=== PATIENT | female | born 1935 | race Caucasian/White ===

== ENCOUNTER 2017-02-08 12:23 | Outpatient (CLI) | payer MEDICARE, BC | END 2017-02-08 12:24 | disposition home or self-care (01) | LOC: BICMAMMO 12:23 | PROVIDERS: ATTEND Internal Medicine | DX: Z12.31 Encounter for screening mammogram for malignant neoplasm of breast (principal) | CPT/HCPCS: 77063; 77067 ==

== ENCOUNTER 2017-04-19 10:33 | Outpatient (CLI) | payer MEDICARE, BC | END 2017-04-19 10:34 | disposition home or self-care (01) | LOC: BICMAMMO 10:33 | PROVIDERS: ATTEND Internal Medicine Rheumatology | DX: M81.0 Age-related osteoporosis without current pathological fracture (principal) | CPT/HCPCS: 77080 ==

== ENCOUNTER 2017-05-11 05:37 | Day surgery (SDC) | payer MEDICARE, BC ==
[2017-05-03 11:16] VITALS: BMI 28.1
[2017-05-11] MEDS ORDERED: PROPOFOL 40 ML ONE (07:24)
[2017-05-11] MEDS ORDERED: PHENYLEPHRINE-NS 100 MCG/ML 10 ML SYRINGE ONE (07:25)
[2017-05-11] MEDS ORDERED: PROPOFOL 200 MG/20 ML VIAL ONE (13:39)
--- NOTE | 2017-05-12 07:11 | ECHO ---
PROCEDURE NOTE: Date: 05/11/17 PROCEDURE: Transesophageal echocardiogram. INDICATION FOR PROCEDURE: 81-year-old female with a history of tachybrady syndrome and intermittent atrial fibrillation, who ibarra s been on Eliquis, and was advised to undergo MERVIN and cardioversion of her atrial fibrillation. She a lso has a history of some TIAs and has been on Eliquis for at least a month. DETAILS: The patient was taken to recovery area, where she underwent a transesophageal echocardiogram. RESULTS: 1. Normal left ventricular systolic function, ejection fraction of 60-65%. 2. Mild mitral valve regurgitation. 3. Mild to moderate tricuspid valve regurgitation. 4. Mild to moderate aortic valve regurgitation. 5. No evidence of left atrial or left atrial appendage thrombus. 6. Left atrial dimension of 5.2-7.0 cm. 7. Flow in the left atrial appendage is 3.7 meters per second. 8. There were no intracardiac thrombi or masses noted. The patient tolerated the procedure well without difficulties or complications.
--- NOTE | 2017-05-12 07:16 | OP ---
PROCEDURE NOTE: Date: 05/11/17 PROCEDURE: Electrical cardioversion. PROCEDURE IN DETAIL: The patient was given short-acting propofol for anesthesia after a transesophageal echo probe reveal ed that there was no indication of left atrial or left atrial appendage thrombus. Using one attempt a t 275 joules, the patient was successfully converted back to sinus rhythm. She did have tachybrady wh en she was in the 80s and showed sinus rhythm with sinus tachycardia and accelerated junctional rhyth m, and then converted back to a sinus bradycardia with a right bundle branch block with heart rates i n the 30s and 40s. There were no other complications or difficulties encountered. If she remains sta ble and the heart rate increases, she may be discharged home. If the heart rate remains in the 30s an d 40, she may need to be admitted and undergo pacemaker insertion. We will discuss these issues with the airline stewardess.
== END 2017-05-11 12:22 | disposition home or self-care (01) ==
LOC: CCL 05:37
PROVIDERS: ATTEND Internal Medicine Cardiovascular Disease
PROC: 5A2204Z Restoration of Cardiac Rhythm, Single (ICD-10-PCS; principal; 2017-05-11)
DX: I48.0 Paroxysmal atrial fibrillation (principal); I25.10 Atherosclerotic heart disease of native coronary artery without angina pectoris; I10 Essential (primary) hypertension; I45.10 Unspecified right bundle-branch block; R47.01 Aphasia; Z79.01 Long term (current) use of anticoagulants; Z79.899 Other long term (current) drug therapy
CPT/HCPCS: 92960; 93005; 93010; 93312; J2704

== ENCOUNTER 2018-02-09 08:12 | Outpatient (CLI) | payer MEDICARE, BC | END 2018-02-09 08:13 | disposition home or self-care (01) | LOC: BICMAMMO 08:12 | PROVIDERS: ATTEND Internal Medicine | DX: Z12.31 Encounter for screening mammogram for malignant neoplasm of breast (principal) | CPT/HCPCS: 77063; 77067 ==

== ENCOUNTER 2019-02-12 09:07 | Outpatient (CLI) | payer MEDICARE, BC ==
--- NOTE | 2019-02-12 09:39 | MMO ---
Bilateral MAMMO Bilat Screen [facility]. CLINICAL HISTORY: Patient is 83 years old and is seen for screening. The patient has no family history of breast cancer. The patient has no personal history of cancer. VIEWS: The views performed were: bilateral craniocaudal with tomosynthesis and bilateral mediolateral oblique with tomosynthesis. FILMS COMPARED: The present examination has been compared to prior imaging studies performed at [facility] on 02/03/2015, 02/06/2016, 02/08/2017 and 02/09/2018. This study has been interpreted with the assistance of computer-aided detection. MAMMOGRAM FINDINGS: There are scattered fibroglandular densities. There are stable benign appearing calcifications seen in both breasts. A biopsy clip is seen in the right breast. There are no suspicious masses, suspicious calcifications, or new areas of architectural distortion. IMPRESSION: THERE IS NO MAMMOGRAPHIC EVIDENCE OF MALIGNANCY. A ROUTINE FOLLOW-UP MAMMOGRAM IN 1 YEAR IS RECOMMENDED. THE RESULTS OF THIS EXAM WERE SENT TO THE PATIENT. ACR BI-RADS Category 2 - Benign finding MAMMOGRAPHY NOTE: 1. A negative mammogram report should not delay a biopsy if a dominant of clinically suspicious mass is present. 2. Approximately 10% to 15% of breast cancers are not detected by mammography. 3. Adenosis and dense breasts may obscure an underlying neoplasm. Reported by: LEIGHTON ROBIN MD Electonically Signed: [id number]
== END 2019-02-12 09:08 | disposition home or self-care (01) ==
LOC: BICMAMMO 09:07
PROVIDERS: ATTEND Internal Medicine
DX: Z12.31 Encounter for screening mammogram for malignant neoplasm of breast (principal)
CPT/HCPCS: 77063; 77067

== ENCOUNTER 2019-04-24 07:22 | Outpatient (CLI) | payer MEDICARE, BC ==
--- NOTE | 2019-04-24 08:53 | BD ---
DEXA BONE DENSITY SCAN: DATE: 04/24/2019. COMPARISON: 12/25/2012. HISTORY: Postmenopausal female undergoing screening for osteoporosis. FINDINGS: Lumbar Spine: BMD (g/cm2) L1 1.025 T-Score: 0.3, previous 0.4 L2 1.057 T-Score: 0.3, previous 0.4 L3 1.065 T-Score: -0.2, previous 1.1 L4 1.042 T-Score: -0.2, previous 1.5 L1-L4 1.047 T-Score: 0.0, previous 0.9 Femoral Neck: 0.672 T-Score: -1.6, previous -0.9 Total Femur: 0.759 T-Score: -1.5, previous -1.3 FRAX-WHO fracture risk assessment tool reports a 10-year fracture risk of 19% for a major osteoporoti c fracture and 4.5% for a hip fracture in an untreated patient. Impression: 1. Osteopenia within the proximal femur/femoral neck. This correlates with a moderately increased r isk for fracture. 2. Normal lumbar spine bone mineral density. POS: [facility]
== END 2019-04-24 07:23 | disposition home or self-care (01) ==
LOC: BICMAMMO 07:22
PROVIDERS: ATTEND Internal Medicine Rheumatology
DX: Z13.820 Encounter for screening for osteoporosis (principal); Z78.0 Asymptomatic menopausal state; M85.859 Other specified disorders of bone density and structure, unspecified thigh
CPT/HCPCS: 77080

== ENCOUNTER 2019-05-05 04:06 | Inpatient (IN) | payer MEDICARE, BC ==
[2019-05-05] MEDS ORDERED: Morphine 4 MG/ML VIAL ONE (05:15)
[2019-05-05] MEDS ORDERED: Ondansetron PF 4 MG/2 ML Vial ONE (05:15)
[2019-05-05 05:19] LABS: #Basophils 0.1 thou/uL (0.0-0.2); #Eosinphils 0.3 thou/uL (0.0-0.7); #Lymphocytes 1.8 thou/uL (1.20-3.40); #Neutrophils 14.1 thou/uL (1.40-6.50); %Basophils 0.3 % (0.0-1.0); %Eosinophils 1.7 % (0.0-10.0); %Lymphocytes 10.3 % (21.0-51.0); %Monocytes 5.8 % (0.0-10.0); %Neutrophils 81.9 % (42.0-75.0); Hemoglobin 9.4 g/dL (12.0-16.0); Mean Corpuscular HGB CONC 33.8 g/dL (32.0-36.0); Mean Corpuscular Hemoglobin 31.6 pg (27.0-31.0); Mean Corpuscular Volume 93.5 fL (78.0-98.0); Mean Platelet Volume 7.3 fL (7.4-10.4); Platelet Count 250 thou/uL (130-400); RBC Distribution Width 13.5 % (11.5-14.5); Red Blood Cell (RBC) Count 2.99 mill/uL (4.20-5.40); White Blood Cell (WBC) Count 17.2 thou/uL (4.8-10.8)
[2019-05-05 05:25] LABS: INR-International Normal Ratio 1.2; PTT 28.9 SEC (22.9-36.1); Prothrombin Time 15.5 SEC (12.0-14.7)
[2019-05-05] MEDS ORDERED: Fentanyl 100 MCG/2 ML VIAL ONE (05:34)
[2019-05-05 05:46] LABS: Phosphorus 3.4 mg/dL (2.3-4.7)
[2019-05-05 05:49] LABS: ALT (SGPT) 12 U/L (8-55); AST (SGOT) 22 U/L (5-34); Albumin 3.3 g/dL (3.4-4.8); Alkaline Phosphatase 63 U/L (40-110); Anion Gap 12 mmol/L (10-20); BUN (Urea Nitrogen) 13 mg/dL (9.8-20.1); Bilirubin, Total 0.5 mg/dL (0.2-1.2); Calc. Creatinine Clearance 0 mL/min (70-130); Calcium 8.5 mg/dL (7.8-10.44); Carbon Dioxide 25 mmol/L (23-31); Chloride 107 mmol/L (98-107); Estimated GFR-MDRD 70; Globulin 2.2 g/dL (2.4-3.5); Glucose 127 mg/dL (83-110); Magnesium 1.9 mg/dL (1.6-2.6); Potassium 3.8 mmol/L (3.5-5.1); Protein, Total 5.5 g/dL (6.0-8.3); Sodium 140 mmol/L (136-145)
[2019-05-05] MEDS ORDERED: hydrALAZINE 20 MG/ML VIAL SLOW IVP PRN (06:01)
[2019-05-05] MEDS ORDERED: Dextrose 50% Abboject 50 ML SYRINGE SLOW IVP PRN (06:01)
[2019-05-05] MEDS ORDERED: Dextrose 5% in Water 1,000 ML IV PRN (06:01)
[2019-05-05] MEDS ORDERED: Ondansetron PF 4 MG/2 ML Vial IVP PRN (06:01)
[2019-05-05] MEDS ORDERED: Cyclobenzaprine 10 MG TAB PO PRN (06:03)
--- NOTE | 2019-05-05 08:44 | RAD ---
LEFT FEMUR TWO VIEWS: HISTORY: Fell when walking to bathroom. The patient tripped and fell. Left thigh pain. FINDINGS: There is a comminuted and angulated as well as displaced fracture involving the distal left femoral d iaphysis and metadiaphysis. Dista fracture fragment is displaced laterally by one full shaft width. O steopenia is present. No additional fracture is seen. Osteoarthritis involves the left knee. IMPRESSION: Comminuted angulated and displaced fracture, distal left femoral diaphysis and metadiaphysis. POS: OFF
--- NOTE | 2019-05-05 08:46 | RAD ---
LEFT KNEE THREE VIEWS: HISTORY: The patient fell while going to the bathroom. Left thigh pain and swelling. FINDINGS: There is a comminuted fracture involving the distal left femoral diaphysis and metadiaphysis. Distal fracture fragment is displaced laterally by one full shaft width. There is apex medial angulation of the fracture fragments. Displaced fracture fragments are present. Osteopenia is present. Osteoarthrit is involves the knee with joint space narrowing bilaterally and osteophyte formation. IMPRESSION: Comminuted, angulated and displaced fracture involving the distal left femoral diaphysis and metadiap hysis. POS: OFF
--- NOTE | 2019-05-05 08:48 | RAD ---
CHEST ONE VIEW: HISTORY: Post fall with left thigh pain, swelling and femoral fracture. COMPARISON: 10/11/2015 FINDINGS: Dual-lead left subclavian cardiac pacemaker device is now noted in place. Previously seen nasogastric tube is no longer visualized. The cardiac silhouette and pulmonary vasculature are within normal uribe its. Mild chronic lung changes are seen. There is no consolidation or pleural fluid identified. Degen erative changes are seen in the spine. Osteopenia is present. The right humeral head is high-riding, suggesting a chronic rotator cuff tear. No obvious fracture is appreciated. There are remote left sided rib fractures seen. IMPRESSION: No acute cardiopulmonary process. POS: OFF
--- NOTE | 2019-05-05 08:51 | RAD ---
PELVIS ONE VIEW: HISTORY: Post fall. Femur fracture. FINDINGS: There is bilateral hip osteoarthritis. The patient is slightly rotated but no obvious fracture is darrian reciated. Degenerative changes are seen in the lower lumbar spine. Radiopaque tubing overlies the pel vis and lower abdomen. IMPRESSION: 1. Bilateral hip osteoarthritis and degenerative changes of the lower lumbar spine. 2. No obvious fracture visualized. POS: OFF
[2019-05-05] MEDS: Acetaminophen 500 MG TAB PO SCH ×3 (09:14→18:52)
[2019-05-05] MEDS: Polyethylene Glycol 3350 17 GM Packet PO SCH (09:14)
[2019-05-05] MEDS: traMADol HCl 50 MG TAB PO PRN ×3 (09:15→21:33)
[2019-05-05] MEDS: Senokot S 8.6-50 MG TAB PO SCH ×2 (09:15→21:33)
[2019-05-05] MEDS: Famotidine/PF 20 mg/2ml Vial SLOW IVP SCH ×2 (09:16→21:32)
--- NOTE | 2019-05-05 09:18 | RAD ---
LEFT FOREARM TWO VIEWS: HISTORY: Pain and bruising of the left forearm after a fall. FINDINGS: A peripheral intravenous catheter overlies the region of the antecubital fossa. Osteopenia is present . Osteoarthritis involves the first carpometacarpal joint. No fracture or dislocation is identified. IMPRESSION: Osteopenia without acute fracture visualized. POS: OFF
--- NOTE | 2019-05-05 09:20 | RAD ---
LEFT HAND THREE VIEWS: HISTORY: Pain and bruising left hand after fall. FINDINGS: There is diffuse opacity. Osteoarthritis involves the interphalangeal joints as well as the first car pometacarpal joint. There is slight lateral subluxation of the base of the metacarpal of the thumb, r elated to the carpal bone. No fracture or dislocation is appreciated. Subcutaneous soft tissue swelli ng is seen at the dorsal aspect of the hand. IMPRESSION: 1. Subcutaneous soft tissue swelling at the dorsal aspect of the hand without acute fracture visualiz ed. 2. Osteoarthritis and osteopenia. POS: OFF
--- NOTE | 2019-05-05 09:56 | HP ---
TRAUMA SURGEON: Dr. Mcgrath. CONSULTING PHYSICIAN: Dr. Martinez. HISTORY OF PRESENT ILLNESS: The patient is an 83-year-old female who presented to the emergency department via EMS after a mechanical fall from standing. The patient reports she was walking to the bathroom using her cane at her home when her shoe got caught and she tripped, falling onto her left thigh. She denies loss of consciousness and hitting her head. She is on Eliquis for AFib. Her mentation is normal at the time of on my evaluation. There is no head trauma noted. Workup by emergency room physician demonstrated a left distal femur fracture. Dr. Martinez of Orthopedic Surgery was consulted, who recommended placing the patient in a knee immobilizer and he would evaluate her later today. He also asked for the patient to be admitted to the Trauma Service. At the time of my evaluation, the patient complained of left-sided knee and left-sided hand and wrist pain. She reported she was unable to bear weight on her left wrist, she had a large hematoma there. The patient also has bruising to the left knee. Pulses are intact. She denies numbness or tingling in her upper or lower extremities as well as loss of consciousness. During my initial assessment, the patient reported that she was feeling nauseous. Systolic blood pressure was in the 80s. Subsequently, she received a 500 cc bolus of normal saline and her blood pressure improved with systolic in the 120s. At that time. Dr. Harvey was asked to re-evaluate the patient, as there could be a concern for possible bleeding, but Dr. Harvey was not concerned and the patient did not receive any further workup for possible hemorrhage. REVIEW OF SYSTEMS: All additional 10-point review of systems negative except as indicated above. PAST MEDICAL HISTORY: AFib, hypertension, pacemaker, osteoporosis, and hypothyroidism. SURGICAL HISTORY: Colectomy, exploratory laparotomy and adhesiolysis for small bowel obstruction, hysterectomy, ocular implant. SOCIAL HISTORY: The patient lives at home with her . She uses a cane to get around. She denies tobacco, drug, and alcohol abuse. MEDICATIONS: 1. Amlodipine. 2. Clonidine. 3. Levothyroxine. 4. Losartan. 5. Eliquis. 6. Tramadol. 7. Voltaren. 8. Nexium. 9. Sotalol. 10. Alendronate. 11. Triamterene/hydrochlorothiazide. 12. Fluoxetine. 13. Aspirin. 14. Equate. 15. Vitamin B6. 16. B complex with vitamin B12. 17. Vitamin C chewable. 18. Vitamin D. 19. Vitamin E units capsule. 20. [place]-3 fish oil. 21. Magnesium. 22. Zinc. 23. Multivitamin. 24. Turmeric. 25. Biotin oral. 26. Iron 325 mg. ALLERGIES: NO KNOWN DRUG ALLERGIES. PHYSICAL EXAMINATION: VITAL SIGNS: Temperature 97.6, pulse 69, respirations 18, oxygen saturation 96% on room air, blood pressure 120/65. PRIMARY SURVEY: Airway intact. Adequate breath sounds bilaterally. 2+ pulses in bilateral radials, femorals, and DPs. GCS 15. Gross motor and sensation are intact. No lacerations noted. The patient has bruising over the left knee as well as the dorsal aspect of the left hand. No active external bleeding. SECONDARY SURVEY: HEAD: Normocephalic and atraumatic. No gross palpable skull deformities or tenderness. EYES: Pupils 3-2, equal, round, and reactive to light bilaterally. ENT: No hemotympanum. No epistaxis. No septal hematoma. Midface stable to manipulation. No blood in the oropharynx. Dentition is intact. No anterior neck injury/crepitus/tenderness. C-SPINE: No step-offs or deformities. Nontender. C-collar not in place. CHEST: Nontender. No crepitus. No abrasions or ecchymosis noted. Equal chest movement. ABDOMEN: Soft, nontender, nondistended. PELVIS: Stable to palpation. Nontender. No abrasions or ecchymosis. RECTAL: Deferred. GENITOURINARY: Deferred. EXTREMITIES: The patient has swelling and rotation of the left lower extremity. Swelling noted at the knee and bruising as well. The patient also has bruising and tenderness over the left dorsal hand and wrist. 2+ pulses in the bilateral radials, femorals, and DPs. BACK/SPINE: No step-offs, deformities, or tenderness to palpation of the thoracic or lumbar spine. No abrasions or ecchymosis noted. NEUROLOGIC: 5/5 strength in bilateral verifier operator, plantar flexion, dorsiflexion. Gross normal sensation x4 extremities. LABORATORY FINDINGS: White count 17.2, hemoglobin 9.4, hematocrit 27.9, platelets 250. Sodium 140, potassium 3.8, chloride 107, bicarb 25, BUN 13, creatinine 0.79, glucose 127, phosphorus 3.4, magnesium 1.9. DIAGNOSTIC FINDINGS: X-ray of the left knee demonstrates a left distal femur fracture. The patient also is receiving a chest x-ray, pelvic x-ray and x-ray of the left forearm and left wrist. We will follow up those reads. ASSESSMENT: 1. Status post mechanical fall, on Eliquis. 2. Left distal femur fracture. 3. History of atrial fibrillation, hypertension, osteoporosis, pacemaker, hypothyroidism, status post colectomy. 4. Left wrist, left forearm and hand pain. PLAN: The patient will be admitted to the Trauma Service. She will have a heart healthy diet. She has received 1 L bolus of IV fluids in the emergency department for hypotension, which has now resolved. It is likely due to vasovagal. We will closely monitor her hemodynamics. There is low concern for hemorrhage at this time. The patient to be evaluated by Dr. Martinez of Orthopedic Surgery for fixation of the left distal femur fracture. The patient last took her Eliquis on the evening of May 04, 2019. Subsequently, she will likely not go to the OR for at least the next 24 hours. She will receive both oral and IV pain medications. We will restart her home medications as clinically indicated once the med rec has been completed by the nursing staff. We will hold off on PT until her injury has been fixed. This patient will be discussed with Dr. Mcgrath after this dictation. Job ID: [id number]
--- NOTE | 2019-05-05 10:40 | CON ---
DATE OF CONSULTATION: 05/05/2019 HISTORY OF PRESENT ILLNESS: Ms. Locke is an 83-year-old female, who got up last night to go to the bathroom. She was using a cane. She tripped and fell. She landed on her left leg. She also injured her left hand. She had pain and inability to bear weight. She noticed deformity of her left leg as well with rotation of her foot. EMS took the patient to the emergency department. X-rays have demonstrated a left distal femur fracture with comminution and displacement. The patient of note is on Eliquis for atrial fibrillation. She also has a pacemaker placed. She took her Eliquis yesterday afternoon. REVIEW OF SYSTEMS: Positive for left leg pain and left hand pain. Otherwise, negative 10-point review of systems. PAST MEDICAL HISTORY: Atrial fibrillation, hypertension, osteoporosis, hypothyroidism, osteoarthritis of the knees. PAST SURGICAL HISTORY: Pacemaker placement, colectomy, exploratory laparotomy, hysterectomy, and ocular implant. SOCIAL HISTORY: The patient lives independently and uses a cane for mobility. She denies alcohol, tobacco, or drug use. ALLERGIES: NO KNOWN DRUG ALLERGIES. RESULTS REVIEWED: Images; x-rays of the left femur demonstrate highly comminuted and displaced distal femur fracture. There is advanced osteoarthritis of the patient's left knee as well. The patient's bone appearance is consistent with osteoporosis. PHYSICAL EXAMINATION: VITAL SIGNS: The patient is afebrile, normotensive, 98% on room air. GENERAL: She is alert, lying supine, no apparent distress. HEENT: Normocephalic and atraumatic. RESPIRATORY: Breathing comfortably. ABDOMEN: Soft, nontender, and nondistended. CARDIOVASCULAR: Pulses palpable and regular. EXTREMITIES: The left lower extremity is in a knee immobilizer. She has ecchymosis of the lower leg. She is externally rotated. She is able to flex and extend the foot and ankle. She has a palpable pulse. Sensation is intact in the foot. She has swelling and ecchymosis over the dorsal aspect of her hand. She has intact capillary refill. IMPRESSION: Left distal femur fracture with comminution and displacement. PLAN: At this point, the patient will need to go to the operating room for open reduction and internal fixation of her distal femur. We will wait until tomorrow for this intervention given that she took Eliquis yesterday evening. She should be bedrest for now. She will have medical optimization prior to surgery. We will continue knee immobilizer. Forearm and hand x-ray have been negative. We can elevate and ice the leg and hand. Job ID: [id number]
--- NOTE | 2019-05-05 10:53 | CT ---
CT HEAD WITHOUT CONTRAST: INDICATIONS: Fall with injury to head. The patient is on an anticoagulant. FINDINGS: The ventricles have normal size and position. There is no evidence of intracranial hemorrhage. No wiley ma, mass, infarct or other acute process. The paranasal sinuses and mastoids are clear. IMPRESSION: No acute finding. POS: AGW
[2019-05-05] MEDS: Morphine 2 MG/ML SYRINGE SLOW IVP PRN ×3 (12:42→21:41)
--- NOTE | 2019-05-05 13:22 | PRG ---
DATE OF SERVICE: 05/05/2019 SUBJECTIVE: This is an 83-year-old female, who tripped and fell yesterday causing a left distal femur fracture. The patient last took her Eliquis last night. The patient had no overnight events. The patient's pain is well controlled at this time. The patient voices no complaints or concerns. OBJECTIVE: VITAL SIGNS: Temperature 97.5, pulse 83, respirations 16, SpO2 of 100% on room air, blood pressure 103/61. GENERAL: Well-appearing elderly female, awake, alert, in no distress. HEENT: Head is atraumatic and normocephalic. RESPIRATORY: Equal chest rise and fall, bilateral breath sounds clear. EXTREMITIES: Distal pulses intact. Left lower extremity is on a knee immobilizer. Ecchymosis noted to the lower leg. Ecchymosis and mild swelling to left hand. Sensation intact in all extremities. NEUROLOGIC: GCS 15. No focal deficits. LABORATORY DATA: There are no labs to evaluate. DIAGNOSTIC DATA: 1. Pelvis x-ray; impression, no obvious fracture visualized, bilateral hip osteoarthritis and degenerative changes on the old lumbar spine. 2. Left forearm x-ray; impression, osteopenia without acute fracture visualized. 3. Left hand x-ray; impression, subcutaneous soft tissue swelling at the dorsal aspect of the hand without acute fracture. 4. Brain CT without contrast; impression, no acute findings, no evidence of intracranial hemorrhage. ASSESSMENT: 1. Status post mechanical fall, on Eliquis. 2. Left distal femur fracture. 3. Left hand contusion. 4. History of atrial fibrillation, hypertension, osteoporosis, pacemaker, hypothyroidism, status post colectomy, and chronic anemia. PLAN: Dr. Martinez with Orthopedic Surgery plans to take the patient to the OR tomorrow for repair of her left distal femur fracture. The patient will be on a heart healthy diet today, and then, n.p.o. after midnight except for medications. Continue left lower extremity in knee immobilizer, bedrest. Pain control. Hold Eliquis. We will monitor the patient's vital signs and restart blood pressure medications if needed. PT and OT to evaluate and treat postop. We will restart the patient's iron and vitamin C for her chronic anemia. A rehab screen has been placed. The patient will most likely need additional physical therapy. The plan was discussed with the attending who agrees. Job ID: [id number] MTDD
[2019-05-05 14:42] VITALS: BMI 31.1
--- NOTE | 2019-05-05 23:27 | PRG ---
DATE OF SERVICE: 05/05/2019 SUBJECTIVE: The patient was seen this evening during rounds. She was resting comfortably, sitting up in bed and asleep, but no signs of acute distress. Nursing reported no acute events. OBJECTIVE: VITAL SIGNS: Temperature 98, pulse 74, respirations 14, oxygen saturation 97% on room air, blood pressure 118/65. GENERAL: Well-appearing elderly female, sitting up in bed, asleep, in no signs of acute distress. PULMONARY: Equal chest rise and fall. No signs of acute respiratory distress. ASSESSMENT: 1. Status post mechanical fall, on Eliquis. 2. Left distal femur fracture. 3. History of atrial fibrillation, hypertension, pacemaker, osteoporosis, hypothyroidism, and colectomy. PLAN: The patient is n.p.o. at midnight and will go to the OR tomorrow with Dr. Martinez for fixation of her left distal femur fracture. We will continue to control her pain overnight. We did place 2 units of blood on hold for the OR tomorrow. We have restarted her home medications. We will continue to hold her antihypertensive as her blood pressure does not require those medications at this time. We will repeat blood work in the morning. Job ID: [id number]
[2019-05-06] MEDS: Acetaminophen 500 MG TAB PO SCH ×4 (01:56→18:46)
[2019-05-06 04:32] LABS: Anion Gap 12 mmol/L (10-20); BUN (Urea Nitrogen) 19 mg/dL (9.8-20.1); Calc. Creatinine Clearance 73 mL/min (70-130); Calcium 7.9 mg/dL (7.8-10.44); Carbon Dioxide 26 mmol/L (23-31); Chloride 106 mmol/L (98-107); Estimated GFR-MDRD 63; Glucose 132 mg/dL (83-110); Magnesium 2.1 mg/dL (1.6-2.6); Phosphorus 3.8 mg/dL (2.3-4.7); Potassium 3.9 mmol/L (3.5-5.1); Sodium 140 mmol/L (136-145)
[2019-05-06] MEDS: Levothyroxine Sodium 25 MCG TAB PO SCH (04:57)
[2019-05-06] MEDS: Levothyroxine Sodium 112 MCG TAB PO SCH (04:57)
[2019-05-06] MEDS: traMADol HCl 50 MG TAB PO PRN (04:57)
[2019-05-06 05:13] LABS: Band 5 % (5-11); Eosinophils 1 % (0-10); Hemoglobin 6.2 g/dL (12.0-16.0); Lymphocytes 18 % (21-51); MDiff Complete? YES; Mean Corpuscular HGB CONC 34.3 g/dL (32.0-36.0); Mean Corpuscular Hemoglobin 32.2 pg (27.0-31.0); Mean Corpuscular Volume 93.8 fL (78.0-98.0); Mean Platelet Volume 7.7 fL (7.4-10.4); Monocytes 14 % (0-10); Neutrophil 62 % (42-75); Platelet Count 171 thou/uL (130-400); RBC Distribution Width 13.4 % (11.5-14.5); Red Blood Cell (RBC) Count 1.91 mill/uL (4.20-5.40); White Blood Cell (WBC) Count 8.1 thou/uL (4.8-10.8)
--- NOTE | 2019-05-06 05:55 | PDOC.EVN ---
Event Note - Event Note Event Note: Patient to receive 2U PRBC this AM for HGB of 6.2. She is going to the OR today with ortho for fixation of her L distal femur fx as well. She takes eliquis at home fore Afib which has been held since her admission. Will plan to repeat a CBC post op. Jenny Landa PA-C Trauma Surgery
--- NOTE | 2019-05-06 07:33 | PDOC.EVN ---
Event Note - Event Note Event Note: Pt seen and agree with PA note. To OR for femur today.
[2019-05-06] MEDS ORDERED: Fentanyl 100 MCG/2 ML VIAL ONE ×2 (07:54→08:47)
[2019-05-06] MEDS ORDERED: Lidocaine 1% PF 5 ML VIAL ONE ×2 (07:54→10:25)
[2019-05-06] MEDS: Ascorbic Acid 500 mg Chewable Tablet PO SCH (08:00)
[2019-05-06] MEDS ORDERED: CEFAZOLIN 2 GM in Premix Bag 1 BAG IVPB SCH (08:00)
[2019-05-06] MEDS: Ferrous Sulfate 325 MG TAB PO SCH (08:01)
[2019-05-06] MEDS: Polyethylene Glycol 3350 17 GM Packet PO SCH (08:01)
[2019-05-06] MEDS: Senokot S 8.6-50 MG TAB PO SCH ×2 (08:01→21:15)
[2019-05-06] MEDS: Famotidine/PF 20 mg/2ml Vial SLOW IVP SCH (08:01)
[2019-05-06] MEDS: Magnesium Oxide 400 MG TAB PO SCH (08:01)
[2019-05-06] MEDS ORDERED: Ketamine 50 MG/ML (10ML VIAL) ONE (08:41)
[2019-05-06] MEDS ORDERED: SUGAMMADEX SODIUM 200 MG/2 ML VIAL ONE (09:33)
[2019-05-06] MEDS ORDERED: Bupivacaine/Epinephrine 0.25% 30 ML VIAL ONE (09:46)
[2019-05-06] MEDS ORDERED: Rocuronium Bromide 10 MG/ML (10ML VIAL) ONE (10:25)
[2019-05-06] MEDS ORDERED: PROPOFOL 200 MG/20 ML VIAL ONE (10:25)
[2019-05-06] MEDS ORDERED: Ondansetron PF 4 MG/2 ML Vial ONE (10:25)
[2019-05-06] MEDS ORDERED: HYDROmorphone 2 MG/ML VIAL SLOW IVP PRN (10:42)
[2019-05-06] MEDS ORDERED: Promethazine HCl 25 MG/ML VIAL SLOW IVP PRN (10:42)
[2019-05-06] MEDS ORDERED: Morphine Sulfate 2 MG/ML SYRINGE SLOW IVP PRN (10:42)
[2019-05-06] MEDS ORDERED: PACU-Morphine 4MG/ML VIAL SLOW IVP PRN (10:42)
[2019-05-06] MEDS ORDERED: Ondansetron HCl/PF 4 MG/2 ML Vial IVP PRN (10:42)
[2019-05-06] MEDS ORDERED: Promethazine HCl 25 MG/ML VIAL IM PRN (10:42)
--- NOTE | 2019-05-06 12:46 | RAD ---
LEFT FEMUR: INDICATIONS: Intraoperative imaging during open reduction and internal fixation. TECHNIQUE: A total of seven fluoroscopic views are presented from the OR. FINDINGS: Films demonstrate a plate and screws transfixing the mid and distal femur. POS: AGW
[2019-05-06] MEDS: CEFAZOLIN 2 GM in Premix Bag 1 BAG IVPB SCH (17:13)
--- NOTE | 2019-05-06 18:19 | PRG ---
DATE OF SERVICE: 05/06/2019 SUBJECTIVE: The patient remains on the surgical floor. The patient is postop day 0 status post repair of her left distal femur fracture. The patient is currently awake, alert, talking to her family on the phone. The patient is in no distress and denies any pain. The patient is currently eating and tolerating her diet well. The patient voices no complaints or concerns. The patient did have a low hemoglobin this morning and was given 1 unit of packed red blood cells before surgery and 1 unit packed red blood cells in the OR. The patient denies any weakness or dizziness. OBJECTIVE: VITAL SIGNS: Temperature 98.3, respirations 18, SpO2 to 95% on room air, pulse 78, blood pressure 120/65. GENERAL: Well-appearing elderly female, awake, alert, in no distress. RESPIRATORY: Equal chest rise and fall. Respirations are even and nonlabored. EXTREMITIES: Moves all extremities. No significant swelling. Left lower extremity in a knee immobilizer. NEUROLOGIC: No focal deficit. GCS 15. LABORATORY DATA: WBC 8.1, RBC 1.91, hemoglobin 6.2, hematocrit 17.9, platelets 171. Sodium 140, potassium 3.9, chloride 106, carbon dioxide 26, BUN 19, creatinine 0.86, estimated GFR 63, glucose 132, calcium 7.9, phosphorus 3.8, magnesium 2.1. DIAGNOSTIC STUDIES: There are no new diagnostics to review. ASSESSMENT: 1. Status post mechanical fall, on Eliquis. 2. Left distal femur fracture. 3. Left hand contusion. 4. History of atrial fibrillation, hypertension, osteoporosis, pacemaker, hypothyroidism, status post colectomy, and chronic anemia. PLAN: Heart healthy diet. We will change to ground mechanical soft as the patient does not have her teeth with her. We will discontinue IV fluids since the patient is tolerating diet. Pain control. Have the patient work with Physical and Occupational Therapy. We will repeat the patient's hemoglobin later this evening and again in the morning. The plan was discussed with the attending who agrees. Job ID: [id number] MTDD
[2019-05-06 20:01] LABS: #Basophils 0.1 thou/uL (0.0-0.2); #Lymphocytes 1.3 thou/uL (1.20-3.40); #Monocytes 1.7 thou/uL (0.11-0.59); #Neutrophils 9.6 thou/uL (1.40-6.50); %Basophils 0.4 % (0.0-1.0); %Eosinophils 0.3 % (0.0-10.0); %Lymphocytes 10.3 % (21.0-51.0); %Monocytes 13.1 % (0.0-10.0); %Neutrophils 75.9 % (42.0-75.0); Hemoglobin 6.6 g/dL (12.0-16.0); Mean Corpuscular HGB CONC 33.4 g/dL (32.0-36.0); Mean Corpuscular Hemoglobin 30.2 pg (27.0-31.0); Mean Corpuscular Volume 90.2 fL (78.0-98.0); Mean Platelet Volume 8.2 fL (7.4-10.4); Platelet Count 139 thou/uL (130-400); RBC Distribution Width 15.7 % (11.5-14.5); Red Blood Cell (RBC) Count 2.18 mill/uL (4.20-5.40); White Blood Cell (WBC) Count 12.6 thou/uL (4.8-10.8)
--- NOTE | 2019-05-06 20:13 | PDOC.EVN ---
Event Note - Event Note Event Note: Patient to receive 1U PRBC tonight for a post op HGB of 6.6. She received 2U PRBC already today before and during her OR case for a HGB of 6.2. Patient is now POD 0 and takes Eliquis at home. Eliquis has been held since admission. We will follow up with another CBC tomorrow morning, 05/07/19. Jenny Landa PA-C Trauma Surgery
[2019-05-07] MEDS: Acetaminophen 500 MG TAB PO SCH ×5 (00:01→17:41)
[2019-05-07] MEDS: CEFAZOLIN 2 GM in Premix Bag 1 BAG IVPB SCH (00:01)
--- NOTE | 2019-05-07 03:42 | PRG ---
DATE OF SERVICE: 05/06/2019 SUBJECTIVE: The patient was seen this evening during rounds. She was lying in bed comfortably and asleep with no signs of acute distress. Nursing reported no acute events. OBJECTIVE: VITAL SIGNS: Temperature 97.8, pulse 85, respirations 16, oxygen saturation 98% on room air, and blood pressure 154/70. GENERAL: Well-appearing elderly female, lying in bed with no signs of acute distress. PULMONARY: Equal chest rise and fall. No signs of acute respiratory distress. LABORATORY FINDINGS: White count 12.6, hemoglobin 6.6, hematocrit 19.6, and platelets 139. ASSESSMENT: 1. Status post mechanical fall, on Eliquis. 2. Left distal femur fracture, status post repair. 3. History of atrial fibrillation, hypertension, pacemaker, osteoporosis, hypothyroidism, and colectomy. 4. Acute blood loss anemia. PLAN: Continue current diet and pain regimen. Continue physical and occupational therapy. The patient to receive 1 unit of packed red blood cells for a hemoglobin of 6.6 tonight, and we will follow up with a CBC in the morning. We will restart some of the patient's home antihypertensive medications, and we will reassess the need to start additional ones. She will likely need placement at acute rehab facility. Job ID: [id number]
[2019-05-07 05:42] LABS: #Basophils 0.1 thou/uL (0.0-0.2); #Eosinphils 0.2 thou/uL (0.0-0.7); #Lymphocytes 1.8 thou/uL (1.20-3.40); #Monocytes 1.9 thou/uL (0.11-0.59); #Neutrophils 10.2 thou/uL (1.40-6.50); %Basophils 0.4 % (0.0-1.0); %Eosinophils 1.3 % (0.0-10.0); %Lymphocytes 12.5 % (21.0-51.0); %Monocytes 13.3 % (0.0-10.0); %Neutrophils 72.5 % (42.0-75.0); Hemoglobin 7.1 g/dL (12.0-16.0); Mean Corpuscular HGB CONC 31.9 g/dL (32.0-36.0); Mean Platelet Volume 8.8 fL (7.4-10.4); Platelet Count 125 thou/uL (130-400); RBC Distribution Width 15.4 % (11.5-14.5); Red Blood Cell (RBC) Count 2.43 mill/uL (4.20-5.40); White Blood Cell (WBC) Count 14.1 thou/uL (4.8-10.8)
[2019-05-07] MEDS: Levothyroxine Sodium 25 MCG TAB PO SCH (06:06)
[2019-05-07] MEDS: Levothyroxine Sodium 112 MCG TAB PO SCH (06:06)
[2019-05-07 06:09] LABS: Anion Gap 15 mmol/L (10-20); BUN (Urea Nitrogen) 22 mg/dL (9.8-20.1); Calc. Creatinine Clearance 71 mL/min (70-130); Calcium 7.7 mg/dL (7.8-10.44); Carbon Dioxide 21 mmol/L (23-31); Chloride 108 mmol/L (98-107); Estimated GFR-MDRD 62; Glucose 116 mg/dL (83-110); Magnesium 2.1 mg/dL (1.6-2.6); Phosphorus 2.2 mg/dL (2.3-4.7); Potassium 3.8 mmol/L (3.5-5.1); Sodium 140 mmol/L (136-145)
--- NOTE | 2019-05-07 08:03 | OP ---
DATE OF PROCEDURE: 05/06/2019 PROCEDURE PERFORMED: Open reduction and internal fixation of left distal femur fracture. PREOPERATIVE DIAGNOSIS: Comminuted and displaced left distal femur fracture. POSTOPERATIVE DIAGNOSIS: Comminuted and displaced left distal femur fracture. COMPLICATIONS: None. ESTIMATED BLOOD LOSS: 200 mL. MACHINERY ENGINEER: Dillan Sunshine PA-C. IMPLANTS: Synthes 16-hole distal femoral plate with multiple locking and nonlocking screws. INDICATIONS: Ms. Locke is an 83-year-old female, who has fallen and fractured her distal femur. She has been indicated for open reduction and internal fixation to restore anatomic alignment and promote healing. Risks have been reviewed with her. Prolonged recovery process had been reviewed with her. She wants to proceed with the operation. DESCRIPTION OF PROCEDURE: Ms. Locke was identified in the preoperative holding area. Her correct extremity was marked. She was carried to the operating room. She was positioned supine. General anesthesia was induced. A multidisciplinary time-out was performed. The left lower extremity was prepped and draped in sterile fashion. We began the procedure with making a small incision over the lateral distal femur. We dissected down through the subcutaneous tissues to the fascia, which was opened. We dissected down to the lateral aspect of the distal femur. At this point, we pulled traction on the leg and obtained an appropriate reduction. We used intraoperative x-ray to evaluate this. Next, we slid a 16-hole Synthes distal femoral plate from distal to proximal along the cortical bone. We placed a K-wire through the plate proximally. We then placed a K-wire distally, locking our construct. Next, we placed a nonlocking screw in the shaft of the femur, reducing the plate to the bone. At this point, we placed multiple locking screws distally followed by multiple locking screws proximally. We took x-ray images confirming hardware placement and position. There were no complications. After final x-ray images, we thoroughly irrigated with copious lavage. We then closed our layers appropriately. The fascia was closed distally followed by layered closure. [place] were used for the skin. A sterile dressing was applied. The patient was taken to the recovery room in good condition. Job ID: [id number]
[2019-05-07] MEDS: Polyethylene Glycol 3350 17 GM Packet PO SCH (08:09)
[2019-05-07] MEDS: Senokot S 8.6-50 MG TAB PO SCH ×2 (08:09→20:48)
[2019-05-07] MEDS: Magnesium Oxide 400 MG TAB PO SCH (08:09)
[2019-05-07] MEDS: Ascorbic Acid 500 mg Chewable Tablet PO SCH ×2 (08:10→17:01)
[2019-05-07] MEDS: cloNIDine 0.2 MG TAB PO SCH ×4 (08:10→20:45)
[2019-05-07] MEDS: Ferrous Sulfate 325 MG TAB PO SCH ×2 (08:10→17:01)
[2019-05-07] MEDS ORDERED: Losartan 25 MG TAB PO SCH (09:00)
[2019-05-07] MEDS ORDERED: Amlodipine 10 MG TAB PO SCH ×2 (09:00→21:00)
[2019-05-07] MEDS: traMADol HCl 50 MG TAB PO PRN (15:25)
--- NOTE | 2019-05-07 19:07 | PRG ---
DATE OF SERVICE: 05/07/2019 This is Emilee Verdin NP dictating a report for Reji Gurrola DO. SUBJECTIVE: The patient remains on the surgical floor. The patient is postop day #1, status repair of her left distal femur fracture. The patient is currently awake, alert, and in no distress. The patient denies any pain at this time. The patient continues to tolerate a heart-healthy diet. The patient continues to have adequate urinary output. The patient had no overnight events. The patient was restarted on some of her home blood pressure medications. The patient did receive 1 unit of packed red blood cells overnight as she had a repeat hemoglobin of 6.6. OBJECTIVE: VITAL SIGNS: Blood pressure 156/76, temperature 99.1, pulse 99, respirations 18, and SpO2 of 96% on room air. GENERAL: Elderly female, well-appearing, awake, alert, and in no distress. RESPIRATORY: Equal chest rise and fall. Respirations are even and nonlabored. EXTREMITIES: Moves all extremities. No focal deficits. Larry wrap in place at this time. The patient is pending a different brace for her left lower extremity. NEUROLOGIC: No focal deficit. GCS 15. LABORATORY DATA: WBC 14.1, RBC 2.43, hemoglobin 7.1, hematocrit 22.1, and platelets 125. Sodium 140, potassium 3.8, chloride 108, carbon dioxide 21, creatinine 0.88, estimated GFR 62, glucose 116, calcium 7.7, phosphorus 2.2, and magnesium 2.1. DIAGNOSTIC STUDIES: There are no new diagnostics to review today. ASSESSMENT: 1. Status post mechanical fall on Eliquis. 2. Left distal femur fracture, status post repair. 3. Left hand contusion. 4. Blood loss anemia, stable. 5. History of atrial fibrillation, hypertension, osteoporosis, pacemaker, hypothyroidism, status post colectomy, and chronic anemia. PLAN: Continue diet and supportive care. Continue to have the patient work with physical therapy. We will monitor the patient's hemoglobin and hematocrit and repeat labs in the morning. If the patient's hemoglobin and hematocrit are stable, we will restart patient's home Eliquis. Continue pain regimen. The patient's home medications were updated by the day nurse and adjustments were made as the patient no longer takes metoprolol and digoxin. We will increase the patient's home dose of iron and vitamin C to b.i.d. The patient is pending placement to inpatient rehab for continued physical therapy. The patient was examined by Dr. Gurrola during morning rounds. Job ID: [id number] [facility]
[2019-05-07] MEDS: Amlodipine 10 MG TAB PO SCH (20:47)
[2019-05-07] MEDS ORDERED: Digoxin 0.125 MG TAB PO SCH (21:00)
--- NOTE | 2019-05-08 00:40 | PRG ---
DATE OF SERVICE: 05/07/2019 SUBJECTIVE: The patient was seen this evening during rounds. She was lying in bed, resting comfortably with no signs of acute distress. Nursing reported no acute events. OBJECTIVE: VITAL SIGNS: Temperature 98.3, pulse 109, respirations 16, oxygen saturation 90% on room air, blood pressure 113/71. GENERAL: Well-appearing elderly female, lying in bed, asleep with no signs of acute distress. PULMONARY: Equal chest rise and fall. No signs of acute respiratory distress. ASSESSMENT: 1. Status post mechanical fall, on Eliquis. 2. Left distal femur fracture, status post repair. 3. History of atrial fibrillation, hypertension, pacemaker, osteoporosis, hypothyroidism, and colectomy. PLAN: Continue current diet and pain regimen. Continue physical and occupational therapy. Restart the patient's home beta mita. The patient is pending placement at an acute rehab facility. She is ready for discharge at this time the patient. Job ID: [id number]
[2019-05-08] MEDS: Acetaminophen 500 MG TAB PO SCH ×4 (03:11→18:09)
[2019-05-08 05:09] LABS: #Eosinphils 0.2 thou/uL (0.0-0.7); #Lymphocytes 1.3 thou/uL (1.20-3.40); #Monocytes 0.9 thou/uL (0.11-0.59); #Neutrophils 7.9 thou/uL (1.40-6.50); %Basophils 0.3 % (0.0-1.0); %Eosinophils 2.1 % (0.0-10.0); %Lymphocytes 12.8 % (21.0-51.0); %Neutrophils 75.9 % (42.0-75.0); Hemoglobin 6.9 g/dL (12.0-16.0); Mean Corpuscular Hemoglobin 31.4 pg (27.0-31.0); Mean Corpuscular Volume 92.3 fL (78.0-98.0); Mean Platelet Volume 8.1 fL (7.4-10.4); Platelet Count 145 thou/uL (130-400); RBC Distribution Width 15.4 % (11.5-14.5); Red Blood Cell (RBC) Count 2.19 mill/uL (4.20-5.40); White Blood Cell (WBC) Count 10.5 thou/uL (4.8-10.8)
[2019-05-08] MEDS: Levothyroxine Sodium 112 MCG TAB PO SCH (05:19)
[2019-05-08] MEDS: Levothyroxine Sodium 25 MCG TAB PO SCH (05:20)
[2019-05-08] MEDS: traMADol HCl 50 MG TAB PO PRN (05:21)
[2019-05-08 06:40] LABS: Anion Gap 10 mmol/L (10-20); BUN (Urea Nitrogen) 17 mg/dL (9.8-20.1); Calc. Creatinine Clearance 101 mL/min (70-130); Calcium 7.7 mg/dL (7.8-10.44); Carbon Dioxide 25 mmol/L (23-31); Chloride 108 mmol/L (98-107); Estimated GFR-MDRD Greater than 90; Glucose 102 mg/dL (83-110); Magnesium 1.9 mg/dL (1.6-2.6); Phosphorus 1.6 mg/dL (2.3-4.7); Potassium 3.9 mmol/L (3.5-5.1); Sodium 139 mmol/L (136-145)
[2019-05-08] MEDS ORDERED: Potassium Phosphate 30 MMOL, Magnesium Sulfate 2 GM in Sodium Chloride 0.9% 250 ML 250 ML IVPB SCH (08:30)
[2019-05-08] MEDS: Polyethylene Glycol 3350 17 GM Packet PO SCH (08:34)
[2019-05-08] MEDS: Losartan 25 MG TAB PO SCH (08:35)
[2019-05-08] MEDS: Sotalol HCl 80 MG TAB PO SCH (08:35)
[2019-05-08] MEDS: Senokot S 8.6-50 MG TAB PO SCH ×2 (08:35→20:30)
[2019-05-08] MEDS: Ascorbic Acid 500 mg Chewable Tablet PO SCH ×2 (08:36→18:02)
[2019-05-08] MEDS: Magnesium Oxide 400 MG TAB PO SCH (08:37)
[2019-05-08] MEDS: Ferrous Sulfate 325 MG TAB PO SCH ×3 (08:37→18:03)
[2019-05-08] MEDS: cloNIDine 0.2 MG TAB PO SCH ×3 (08:40→20:29)
[2019-05-08] MEDS ORDERED: Non-Formulary Item 1 EACH (Losartan Potassium [Losartan Potassium] 100 MG) PO SCH (09:00)
--- NOTE | 2019-05-08 17:48 | PRG ---
DATE OF SERVICE: 05/08/2019 This is Billy Lange PA-C dictating a report for Dr. Gurrola. SUBJECTIVE: The patient remains on the surgical floor. She is status post ground level fall where she sustained a left distal femur fracture. She is postop day 2 from open reduction and internal fixation of left distal femur fracture. She has begun working with Physical and Occupational Therapy. This morning, she was noted to have hemoglobin of 6.9. Otherwise, overnight she had no issues. She is tolerating her diet. Her pain is controlled. PHYSICAL EXAMINATION: VITAL SIGNS: Temperature is 98.9, heart rate 91, blood pressure 119/70, respirations 20, oxygen saturation 95% on room air. GENERAL: The patient is resting comfortably in bed. She is awake, alert, conversant, and appropriate. RESPIRATIONS: Even and unlabored. EXTREMITIES: Neurovascularly intact x4. Postop dressing is clean, dry, and intact. LABORATORY FINDINGS: White blood cell count 10.5, hemoglobin 6.9, hematocrit 20.2, platelets 145. Sodium 139, potassium 3.9, chloride 108, CO2 of 25, BUN 17, creatinine 0.62, magnesium 1.9, phosphorus 1.6. There are no radiographs to review this morning. ASSESSMENT AND PLAN: 1. Status post ground level fall, on Eliquis. 2. Status post open reduction and internal fixation of left distal femur fracture postop day 2. 3. Acute blood-loss anemia, transfused 1 unit of packed red blood cells today. 4. Left hand contusion, stable. 5. History of atrial fibrillation, hypertension, osteoporosis, pacemaker, hypothyroidism, status post colectomy, and chronic anemia. Plan will be to continue supportive care. Await placement which has been approved for rehab until tomorrow morning. We will replace her potassium and phosphorus and transfuse 1 unit of packed red blood cells. The patient was evaluated and examined with Dr. Gurrola this morning during rounds. Job ID: [id number]
[2019-05-08] MEDS: Amlodipine 10 MG TAB PO SCH (20:30)
[2019-05-09] MEDS: Acetaminophen 500 MG TAB PO SCH ×3 (00:41→11:56)
[2019-05-09] MEDS: Levothyroxine Sodium 112 MCG TAB PO SCH (05:42)
[2019-05-09] MEDS: Levothyroxine Sodium 25 MCG TAB PO SCH (05:42)
[2019-05-09 06:39] LABS: Anion Gap 12 mmol/L (10-20); BUN (Urea Nitrogen) 16 mg/dL (9.8-20.1); Calc. Creatinine Clearance 110 mL/min (70-130); Calcium 8.3 mg/dL (7.8-10.44); Carbon Dioxide 24 mmol/L (23-31); Chloride 107 mmol/L (98-107); Estimated GFR-MDRD Greater than 90; Glucose 102 mg/dL (83-110); Magnesium 2.2 mg/dL (1.6-2.6); Phosphorus 2.3 mg/dL (2.3-4.7); Potassium 4.3 mmol/L (3.5-5.1); Sodium 139 mmol/L (136-145)
--- NOTE | 2019-05-09 06:52 | PRG ---
DATE OF SERVICE: 05/08/2019 SUBJECTIVE: Ms. Locke is an 83-year-old female, status post ground level fall. She sustained left distal femur fracture. She underwent ORIF of left distal femur fracture, postop day #2. Acute blood loss anemia, already had 1 unit of blood transfusion today. The patient was seen on evening rounds today. The patient was sleep with no signs of respiratory distress. Vital signs have been stable. Nurse reports the patient is uneventful, and pain is well controlled. OBJECTIVE: GENERAL: The patient is sound asleep with no signs of respiratory distress. VITAL SIGNS: Currently, temperature 98.6, heart rate is 112, respiratory rate 18, O2 saturation 95% on room air, and blood pressure 136/84. LUNGS: Clear bilaterally. HEART: Regular rate and rhythm. EXTREMITIES: Warm to touch, and pulses 2 positive bilaterally. ASSESSMENT: 1. Status post ground level fall. 2. Left distal femur fracture, status post open reduction and internal fixation of left distal femur fracture, postop day #2. 3. Acute blood loss anemia, already transfused 1 unit of blood today. 4. History of atrial fibrillation. 5. Hypertension. 6. Pacemaker. 7. Hypothyroidism. 8. Post colectomy. 9. Chronic anemia. PLAN: Continue supportive care. Continue pain control. We will recheck CBC tomorrow. Anticipate placement in rehabilitation facility tomorrow. Job ID: [id number]
[2019-05-09 07:32] LABS: #Eosinphils 0.2 thou/uL (0.0-0.7); #Lymphocytes 1.3 thou/uL (1.20-3.40); #Monocytes 0.9 thou/uL (0.11-0.59); #Neutrophils 9.6 thou/uL (1.40-6.50); %Basophils 0.3 % (0.0-1.0); %Eosinophils 1.4 % (0.0-10.0); %Monocytes 7.7 % (0.0-10.0); %Neutrophils 79.6 % (42.0-75.0); Hemoglobin 9.2 g/dL (12.0-16.0); Mean Corpuscular HGB CONC 34.5 g/dL (32.0-36.0); Mean Corpuscular Volume 92.8 fL (78.0-98.0); Mean Platelet Volume 8.3 fL (7.4-10.4); Platelet Count 225 thou/uL (130-400); RBC Distribution Width 15.3 % (11.5-14.5); Red Blood Cell (RBC) Count 2.86 mill/uL (4.20-5.40); White Blood Cell (WBC) Count 12.1 thou/uL (4.8-10.8)
[2019-05-09] MEDS: Sotalol HCl 80 MG TAB PO SCH (08:33)
[2019-05-09] MEDS: cloNIDine 0.2 MG TAB PO SCH (08:33)
[2019-05-09] MEDS: Losartan 25 MG TAB PO SCH (08:33)
[2019-05-09] MEDS: Magnesium Oxide 400 MG TAB PO SCH (08:33)
[2019-05-09] MEDS: Ferrous Sulfate 325 MG TAB PO SCH (08:33)
[2019-05-09] MEDS: Ascorbic Acid 500 mg Chewable Tablet PO SCH (08:33)
[2019-05-09] MEDS: Senokot S 8.6-50 MG TAB PO SCH (08:37)
[2019-05-09] MEDS: Polyethylene Glycol 3350 17 GM Packet PO SCH (08:37)
[2019-05-09 11:33] VITALS: BP 114/68; TEMP 98.6
--- NOTE | 2019-05-10 10:56 | DIS ---
DATE OF ADMISSION: 05/05/2019 DATE OF DISCHARGE: 05/09/2019 ADMISSION DIAGNOSES: 1. Status post mechanical fall, on Eliquis. 2. Left distal femur fracture. 3. History of atrial fibrillation, hypertension, osteoporosis, pacemaker, hypothyroidism, and colectomy. 4. Left wrist, left forearm, and hand contusion. 5. Acute blood loss anemia. CONSULTATIONS: Orthopedics, Dr. Martinez. PROCEDURES: Open reduction and internal fixation of left distal femur fracture. HOSPITAL COURSE: The patient is an 83-year-old woman who was ambulating with her cane when she caught it and tripped falling on her left side. She was brought to the emergency department by ground EMS, where she underwent evaluation and examination and was noted to have the above injuries. Her head CT was negative and her mental status was stable throughout her visit. The patient was noticed to have acute blood loss anemia requiring transfusions on 2 separate occasions, but at the time of discharge, she was stable. She was able to be discharged to inpatient rehab. At the time of discharge, the patient was tolerating a diet. She was progressing with physical and occupational therapy. Her pain was controlled and her bowel function had returned. She will follow up with Dr. Martinez in 2-3 weeks, sooner as needed. She may follow up with [facility] as needed. She will have repeat CBC while in rehab to check her anemia. Job ID: [id number]
== END 2019-05-09 12:15 | DRG 481 ==
LOC: ERS 04:06 → SURG A 06:01
PROVIDERS: ADMIT Surgery; ATTEND Surgery
PROC: 0QSC04Z Reposition Left Lower Femur with Internal Fixation Device, Open Approach (ICD-10-PCS; principal; 2019-05-06)
PROC: 30233N1 Transfusion of Nonautologous Red Blood Cells into Peripheral Vein, Percutaneous Approach (ICD-10-PCS; 2019-05-06)
DX: S72.492A Other fracture of lower end of left femur, initial encounter for closed fracture (principal); D62 Acute posthemorrhagic anemia; I48.91 Unspecified atrial fibrillation; I10 Essential (primary) hypertension; E03.9 Hypothyroidism, unspecified; M81.0 Age-related osteoporosis without current pathological fracture; M25.532 Pain in left wrist; M79.632 Pain in left forearm; M17.0 Bilateral primary osteoarthritis of knee; S60.222A Contusion of left hand, initial encounter; W01.0XXA Fall on same level from slipping, tripping and stumbling without subsequent striking against object, initial encounter; Y92.002 Bathroom of unspecified non-institutional (private) residence as the place of occurrence of the external cause; Z95.0 Presence of cardiac pacemaker; Z90.49 Acquired absence of other specified parts of digestive tract; Z79.899 Other long term (current) drug therapy; Z79.01 Long term (current) use of anticoagulants; Z79.82 Long term (current) use of aspirin
CPT/HCPCS: 36415; 36430; 70450; 71045; 72170; 76000; 80048; 80053; 83735; 84100; 85007; 85025; 85027; 85610; 85730; 86850; 86870; 86900; 86901; 86922; 93005; 96361; 96374; 96375; C1713; C1769; G0390; J0690; J2001; J2270; J2405; J2704; J3010; J3475; J7050; L1832; P9016; S0028

== ENCOUNTER 2020-02-27 19:20 | Inpatient (IN) | payer MEDICARE, BC ==
[2020-02-27] MEDS ORDERED: Diltiazem HCl 125 MG, Admixture Fee 1 EACH in Sodium Chloride 0.9% 100 ML IVPB SCH (20:00)
[2020-02-27 21:06] LABS: Troponin I 0.048 ng/mL (< 0.028)
[2020-02-27] MEDS ORDERED: Ondansetron ODT 4 MG TAB PO PRN (21:27)
[2020-02-27] MEDS ORDERED: Sodium Chloride 0.9% 1,000 ML IV SCH (21:30)
--- NOTE | 2020-02-27 21:31 | PDOC.HHP ---
Hospitalist HPI - History of Present Illness Nausea and vomiting, A. fib with RVR History of Present Illness: This is a pleasant 84-year-old female patient with a history of hypothyroidism, hypertension, A. fib and pacemaker in place, osteoporosis, colonic resection previously complicated with adhesions. Who presents as a transfer from [facility] on account of A. fib with RVR and moderate left-sided pleural effusion. Patient had a fall about 8 months ago with left distal femoral fracturehas had a home care nurse for a while. She had open reduction and internal fixation on that admission Patient has been having nausea and vomiting intermittently for the past month and some associated weight loss. She has also been having associated shortness of breath for the past couple of weeks. Her home health nurse suggested she follow-up for further management. At [facility] she was noted to be in A. fib with RVR and noted a left-sided pleural effusion. Also concerns for pneumonia. She was started on doxycycline and ceftriaxone with diltiazem drip and sent here for higher level care. Labs showed a leukocytosis of 13.4, no bands, hemoglobin 11.9 and platelets 468. Chemistry showed bicarb of 19, creatinine 1.53 from a baseline of 0.86. Troponin was 0.049. She received aspirin 3 2 5 mg prior to transfer. On arrival here her blood pressure was 86/52, respiratory rate 22, pulse 112, temperature 97.8 and saturation 99 on 3 L. She received 1 L of normal saline and continued on diltiazem. Hospitalist team was consulted to admit Hospitalist ROS - Review of Systems Constitutional: reports: weakness, malaise. denies: fever, chills, sweats Respiratory: reports: shortness of breath, SOB with excertion. denies: cough, hemoptysis Cardiovascular: denies: chest pain, palpitations, orthopnea, paroxysmal noc. dyspnea Gastrointestinal: reports: nausea, vomiting, constipation. denies: abdominal pain, diarrhea Genitourinary: denies: dysuria, frequency, incontinence, hematuria Neurological: denies: weakness, numbness, incoordination, change in speech All other systems reviewed; all pertinent +/- noted in HPI/Subj - Medication Medications: Medications: Currently refer to ambulatory list. Allergies.: No known drug allergies Hospitalist History - Past Medical History Other Medical History: Hypothyroidism, hypertension, A. fib on Eliquis, - Past Surgical History Other Surgical History: ORIF, ocular transplant, hysterectomy, colon resection, - Family History Family History: reports: no pertinent history - Social History Smoking Status: Never smoker Alcohol: reports: None Living Situation: With Family Activity level: uses cane/walker - Exam General Appearance: awake alert General - other findings: Looks ill. Eye: PERRL, anicteric sclera ENT: normocephalic atraumatic Heart: no murmur, no gallops, no rubs Heart - other findings: Tachycardic, irregularly irregular heart rhythm Respiratory - other findings: Reduced air entry left base Gastrointestinal: soft, non-tender, non-distended Extremities: no cyanosis, no clubbing, 1+ LE edema Neurological: cranial nerve grossly intact, no weakness, no focal deficits Psychiatric: normal affect, normal behavior, A&O x 3 Hospitalist Results - Labs Result Diagrams: 02/27/20 21:48 02/28/20 03:26 Lab results: Troponin I 0.048 ng/mL (< 0.028) H 02/27/20 20:32 Hospitalist H&P A/P - Plan Plan: This is an 84-year-old female patient with a history of hypertension, A. fib on Anay also has pacemaker, colon resection who presents with progressive weakness, nausea vomiting and shortness of breath. She was transferred from [facility] on account of A. fib with RVR with associated left-sided pleural effusion Sepsis She has leukocytosis and tachypnea or tachycardia if RVR with ANDRE. Source likely from pneumonia She is receiving cefepime and doxycycline Holding fluid bolus. Will do 500 mils normal saline following monitor With worsening pleural effusion and respiratory distress We will continue IV fluids-100 mils per hour Start levophed to prevent excessive fluid use Follow-up on cultures A. fib with RVR Currently on diltiazem drip however blood pressures of We will convert to amiodarone This likely due to sepsis/hypoxia Cardiology evaluation in a.m. Nausea and vomiting Currently subsided Unclear etiology however she has previous history from adhesions. Abdominal x-ray GI consult in a.m. Pneumonia Aspiration versus community-acquired Antibiotics as above Continue monitoring Left pleural effusion Unclear etiologypossibly parapneumonic Pulmonology evaluation in a.m. for possible thoracentesis NSTEMI troponin 0 0.048 slight increase to 0.056 This likely demand from Rolf FERRER Received aspirin in outside hospital We will hold anticoagulation for now Await cardiology input ANDRE Possibly prerenal due to hypotention Give IV fluid bolus 500 at continue continuous infusion Caution so as not to worsen pleural effusion Check UA Consider renal ultrasound in a.m. Check FENa Nephrology consult if worsens History of colonic resection We will continue monitor History of intestinal obstructionadhesions No sign of obstruction at this moment Pacemaker in place. CODE STATUSfull code VTE prophylaxishold Eliquis for now SCD due to possible procedure tomorrow
[2020-02-27] MEDS ORDERED: Digoxin 0.5 MG/2 ML AMP ONE (21:37)
[2020-02-27 22:17] LABS: Phosphorus 4.4 mg/dL (2.3-4.7)
[2020-02-27 22:19] LABS: Anion Gap 19 mmol/L (10-20); BUN (Urea Nitrogen) 45 mg/dL (9.8-20.1); Calc. Creatinine Clearance 0 mL/min (70-130); Calcium 8.2 mg/dL (7.8-10.44); Carbon Dioxide 19 mmol/L (23-31); Chloride 110 mmol/L (98-107); Glucose 110 mg/dL (83-110); Potassium 4.1 mmol/L (3.5-5.1); Sodium 144 mmol/L (136-145)
[2020-02-27 22:38] LABS: Band 35 % (5-11); Hemoglobin 11.9 g/dL (12.0-16.0); Lymphocytes 11 % (21-51); MDiff Complete? YES; Mean Corpuscular HGB CONC 31.9 g/dL (32.0-36.0); Mean Corpuscular Hemoglobin 30.7 pg (27.0-31.0); Mean Corpuscular Volume 96.2 fL (78.0-98.0); Mean Platelet Volume 7.2 fL (7.4-10.4); Metamyelocyte 2 % (0-0); Monocytes 6 % (0-10); Myelocyte 1 % (0-0); Neutrophil 45 % (42-75); Platelet Count 468 thou/uL (130-400); RBC Distribution Width 13.7 % (11.5-14.5); Red Blood Cell (RBC) Count 3.88 mill/uL (4.20-5.40); White Blood Cell (WBC) Count 13.4 thou/uL (4.8-10.8)
[2020-02-28 00:08] LABS: Troponin I 0.056 ng/mL (< 0.028)
[2020-02-28] MEDS ORDERED: Ondansetron PF 4 MG/2 ML Vial ONE (02:02)
[2020-02-28] MEDS: Ondansetron PF 4 MG/2 ML Vial IVP PRN (02:12)
[2020-02-28] MEDS ORDERED: Sodium Chloride 0.9% 1,000 ML IV SCH (02:17)
[2020-02-28] MEDS ORDERED: Amiodarone 150 MG, Admixture Fee 1 EACH in Dextrose 5% in Water 100 ML IVPB SCH (02:30)
[2020-02-28] MEDS ORDERED: Sodium Chloride 0.9% 500 ML IV SCH (03:00)
[2020-02-28] MEDS ORDERED: Norepinephrine 8 MG/0.9% NS 250 ML IVPB SCH (03:15)
[2020-02-28] MEDS ORDERED: Norepinephrine 8 MG/0.9% NS 250 ML ONE (03:20)
[2020-02-28] MEDS ORDERED: Amiodarone 150 MG in Dextrose 5% in Water 100 ML IVPB SCH (03:30)
[2020-02-28] MEDS: Amiodarone 450 MG in Dextrose 5% in Water 250 ML IVPB SCH (03:59)
[2020-02-28 04:45] LABS: Lactic Acid 2.6 mmol/L (0.5-2.2)
[2020-02-28] MEDS: Sodium Chloride 0.9% 1,000 ML IV SCH ×2 (05:40→22:50)
[2020-02-28 07:30] LABS: Bilirubin Moderate (Negative); Blood, Urine Trace (Negative); Glucose, Urine (Dipstick) Negative (Negative); Ketone, Urine Trace mg/dL (Negative); Leukocyte Trace (Negative); Nitrite Negative (Negative); Protein, Urine (Dipstick) 100 mg/dL (Neg-Trace); Urobilinogen 0.2 mg/dL (Less than 2)
[2020-02-28 07:45] LABS: Clarity Extra Turbid (Clear)
[2020-02-28 07:46] LABS: Specific Gravity, Urine 1.019 (1.002-1.036)
[2020-02-28 07:50] LABS: Bacteria/HPF 4+ HPF (None Seen)
[2020-02-28] MEDS ORDERED: Albuterol 200 PUFF (6.7GM INHALER) ONE (08:21)
[2020-02-28] MEDS ORDERED: Nitroglycerin 0.4 MG TAB (25 Tab Bottle) SL PRN (08:45)
[2020-02-28] MEDS ORDERED: Cefepime 2 GM in Sodium Chloride 0.9% 100 ML IVPB SCH (09:00)
[2020-02-28] MEDS ORDERED: Doxycycline 100 MG in Syringe 0 ML IVPB SCH (09:00)
[2020-02-28 09:37] LABS: Mean Corpuscular HGB CONC 31.8 g/dL (32.0-36.0); Mean Corpuscular Hemoglobin 31.3 pg (27.0-31.0); Mean Corpuscular Volume 98.3 fL (78.0-98.0); Mean Platelet Volume 7.6 fL (7.4-10.4); Platelet Count 441 thou/uL (130-400); RBC Distribution Width 13.6 % (11.5-14.5); Red Blood Cell (RBC) Count 3.85 mill/uL (4.20-5.40); White Blood Cell (WBC) Count 22.4 thou/uL (4.8-10.8)
[2020-02-28 09:48] LABS: INR-International Normal Ratio 1.6; Prothrombin Time 19.3 sec (12.0-14.7)
[2020-02-28 09:50] LABS: Lactic Acid 2.8 mmol/L (0.5-2.2)
[2020-02-28 09:55] LABS: ALT (SGPT) 34 U/L (8-55); AST (SGOT) 53 U/L (5-34); Albumin 2.9 g/dL (3.4-4.8); Alkaline Phosphatase 77 U/L (40-110); Anion Gap 17 mmol/L (10-20); BUN (Urea Nitrogen) 51 mg/dL (9.8-20.1); Calc. Creatinine Clearance 0 mL/min (70-130); Calcium 8.2 mg/dL (7.8-10.44); Carbon Dioxide 22 mmol/L (23-31); Chloride 108 mmol/L (98-107); Globulin 2.8 g/dL (2.4-3.5); Glucose 109 mg/dL (83-110); Phosphorus 4.7 mg/dL (2.3-4.7); Potassium 4.4 mmol/L (3.5-5.1); Protein, Total 5.7 g/dL (6.0-8.3); Sodium 143 mmol/L (136-145)
[2020-02-28 09:58] LABS: Troponin I 0.074 ng/mL (< 0.028)
[2020-02-28] MEDS ORDERED: Cefepime 2 GM VIAL ONE (09:59)
[2020-02-28 10:04] LABS: Band 56 % (5-11); Lymphocytes 17 % (21-51); MDiff Complete? YES; Metamyelocyte 6 % (0-0); Monocytes 5 % (0-10); Myelocyte 1 % (0-0); Neutrophil 14 % (42-75); Platelet Morphology Comment Appears Increased; Polychromasia SLIGHT = 2-3 cells (100X) (0-2/hpf); Reactive Lymphocytes 1 % (0-10); Reflex for Review?? YES; Vacuoles MARKED
[2020-02-28 12:23] LABS: Troponin I 0.075 ng/mL (< 0.028)
--- NOTE | 2020-02-28 12:35 | CON ---
DATE OF CONSULTATION: 02/28/2020 CONSULTING PHYSICIAN: Kevin Alva MD REASON FOR CONSULT: Acute kidney injury. REASON FOR ADMISSION: Nausea and vomiting. HISTORY OF PRESENT ILLNESS: 84-year-old female with history of hypothyroidism, hypertension, atrial fibrillation, came to the hospital with nausea and vomiting. She was found to have acute kidney injury with elevated creatinine. Nephrology was consulted. The patient is feeling slightly better. She is still feeling nauseated, but feels better. No chest pain or palpitation. COVID test was negative. PAST MEDICAL HISTORY: Positive for hypothyroidism, hypertension, atrial fibrillation. PAST SURGICAL HISTORY: surgery, hysterectomy, colon resection, ORIF in the past. HOME MEDICATIONS: Reviewed. ALLERGIES: NO KNOWN DRUG ALLERGIES. SOCIAL HISTORY: No smoking, alcohol, or illicit drugs. FAMILY HISTORY: No history of kidney disease. REVIEW OF SYSTEMS: PHYSICAL EXAMINATION: GENERAL: Reveals a well-built female, in no apparent distress. VITAL SIGNS: Temperature afebrile, pulse 111, respiratory rate 32, blood pressure 132/70. HEENT: Atraumatic, normocephalic. Oral mucosa moist. NECK: Supple. CV: S1, S2. Rate and rhythm are regular. RESPIRATORY: Clear. GI: Abdomen is soft. MUSCULOSKELETAL: 1+ edema. DERMATOLOGIC: No skin rash. NEUROLOGIC: Alert and awake. PSYCHIATRIC: Mood and affect normal. LABORATORY DATA: Hemoglobin is 12.0. Potassium 4.4, BUN is 51, creatinine is 2.6. ASSESSMENT AND PLAN: 1. Acute kidney injury on chronic kidney disease, stage 2 most likely from volume depletion and prerenal cause. Agree with hydration for now with close monitor of cardiorespiratory status. 2. Cardiorenal syndrome with history of atrial fibrillation. 3. Mild acidosis. 4. Lactic acidosis. 5. Hypoalbuminemia. 6. Cardiorenal syndrome. 7. Mild anemia. 8. History of hypertension. Plan to continue hydration. Check renal ultrasound. Avoid nephrotoxins and we will monitor labs. We will follow. Thank you for the consult. Job ID: [id number]
[2020-02-28 13:48] LABS: SARS-CoV-2 PCR by NAA Not Detected (NotDetected)
--- NOTE | 2020-02-28 14:41 | CON ---
DATE OF CONSULTATION: 02/28/2020 this is 45 minutes of time. CONSULTING PHYSICIAN: Kevin Alva MD REASON FOR CONSULTATION: Left-sided pleural effusion. HISTORY OF PRESENT ILLNESS: The patient is an 84-year-old female, who has had difficulty with her breathing for the last couple of weeks leading to her presentation to the emergency room last night. Workup has shown her to have a new left-sided pleural effusion. She denies any problems with her breathing in the past. It looks like she does have a heart history as she has a pacemaker in. PAST MEDICAL HISTORY: 1. Atrial fibrillation. 2. Hypothyroidism. 3. Hypertension. PAST SURGICAL HISTORY: 1. ORIF, ocular transplant. 2. Hysterectomy. 3. Colon resection. FAMILY MEDICAL HISTORY: Unremarkable. SOCIAL HISTORY: Nonsmoker. Does not consume alcohol. Does not use illicit drugs. MEDICATIONS: Prior to admission, list was reviewed on chart. Of note, the patient was taking Eliquis prior to admission. Current inpatient medications noted she is on cefepime and doxycycline as well as amiodarone. REVIEW OF SYSTEMS: Remarkable for shortness of breath. No fever, chills, nausea, or vomiting. PHYSICAL EXAMINATION: VITAL SIGNS: Pulse 105, blood pressure 90/45, O2 saturation 95% on 2 L, and respiratory rate 24. GENERAL: The patient is an elderly female, who is pleasant, in no profound distress. HEENT: Unremarkable. NECK: No adenopathy or JVD. LUNGS: She has diminished breath sounds at left base compared to right. CARDIOVASCULAR: S1 and S2. Irregularly irregular. ABDOMEN: Soft and nontender. LABORATORY DATA: White blood cell count 22, hematocrit 37.8, and platelet count 441. Sodium 143, potassium 4.4, chloride 108, CO2 of 22, BUN 51, creatinine 2.6, and glucose 109. C-reactive protein is 29.5. COVID serology was negative. X-ray shows a fairly sizable left pleural effusion. ASSESSMENT: New pleural effusion - etiology unknown. The patient seems to have severe inflammatory markers indicative of possible infection. I would also put malignancy high on differential. PLAN: Diagnostic therapeutic left thoracentesis. I discussed risks of the procedure including, bleeding, infection, external lung puncture. She is agreeable to proceed. Job ID: [id number]
[2020-02-28] MEDS ORDERED: Vancomycin 1 GM in Premix Bag 1 BAG IVPB SCH ×2 (15:00→16:00)
[2020-02-28] MEDS ORDERED: Digoxin 0.5 MG/2 ML AMP ONE (15:29)
--- NOTE | 2020-02-28 15:30 | OP ---
DATE OF PROCEDURE: 02/27/2020 PROCEDURE PERFORMED: Left thoracentesis. PREOPERATIVE DIAGNOSIS: Left pleural effusion. POSTOPERATIVE DIAGNOSIS: Left pleural effusion. ANESTHESIA: 1% lidocaine without epinephrine. DESCRIPTION OF PROCEDURE: Informed consent was obtained prior to the procedure. The patient understood the risks of the procedure including bleeding, infection, external lung puncture, agreed to proceed. The patient was placed in the sitting position. The left posterior hemothorax was cleansed with chlorhexidine and draped sterilely. Ultrasound was used to locate the proper entry site, which was about the 5th, 6th interspace at the lateral scapular line. A [id number] catheter was used to enter the pleural space after local anesthetic and chlorhexidine was applied. 400 mL of bloody fluid was removed. I could not get any further fluid out. She tolerated the procedure well. The fluid will be sent for cytology and other studies. Job ID: [id number]
[2020-02-28 15:37] LABS: Fluid, Triglycerides 67 mg/dL (Not Available); Pleural Fluid, Amylase Less than 30 U/L (Not Available); Pleural Fluid, Glucose Less than 20 mg/dL; Pleural Fluid, LDH 2554 U/L (Not Available); Pleural Fluid, Protein 5.3 g/dL
[2020-02-28 16:11] LABS: RBC Count-Automated (BF) 8140 /cu.mm; WBC/Nucleated-Auto (BF) 35492 uL
[2020-02-28 16:12] LABS: BF Color Red; Body Fluid Source Pleural Fluid; Clarity Cloudy/Turbid (Clear); Tube # 1
[2020-02-28] MEDS ORDERED: Sodium Chloride 0.9% 250 ML IV SCH (16:45)
[2020-02-28] MEDS ORDERED: Vancomycin 1 GM/200 ML BAG ONE (17:46)
--- NOTE | 2020-02-28 17:58 | CON ---
DATE OF CONSULTATION: 02/28/2020 INDICATION FOR CONSULTATION: An 84-year-old female who was admitted with a left pleural effusion, which was found to be bloody. It was drained by Dr. Wade. We were asked to see her due to atrial fibrillation with rapid ventricular response. HISTORY OF PRESENT ILLNESS: This is a very pleasant, now 84-year-old female who has been followed by me for several years now. She does have a history of intermittent atrial fibrillation in the past. She had a pacemaker check on February 21 of this year, which showed about four episodes of atrial fibrillation with rapid ventricular response at times. She has been on sotalol as well as Eliquis for control of this. When she presented today in the emergency room, she said she came in because she was short of breath, but she looks very ill appearing lady. She has lost a significant amount of weight since the last time I saw her, which was back in November of 2019. At that time, I believe after I saw her, she actually fell and she fractured her femur during that time and actually was in rehab I believe for some time after that and was then discharged back to home, but had noticed that she was not able to eat. Whatever she ate, came back up and she has lost weight since she cannot eat and she does look emaciated. She has had a history of colon problems in the past and she has undergone a partial colectomy. At this time, she is indeed again in atrial fibrillation, the heart rates in the 100s to one-teens, up to 120 at times. She has been placed on IV amiodarone. Unfortunately, the blood pressure is low, at times it is in the 80s systolically. I do not think she has been placed on diltiazem due to the hypotension. She also appears to be dehydrated, most likely due to her nausea and vomiting, and according to the lab work, she also appears to be somewhat prerenal with some renal insufficiency indicative of dehydration. At this time, she has been given IV fluids. Also, she will be given antibiotics, and was placed on IV amiodarone. At this time, she continues to have heart rates in the one-teens and I will give her some IV digoxin to help slow the rate down. She denies any chest pain. She mainly complains of shortness of breath and overall ill feeling, not doing very well. When I saw her in November in the office, she was not complaining of any shortness of breath or chest discomfort or PND orthopnea or edema. Her cardiac enzymes are slightly elevated, most likely this is due to demand ischemia associated with the atrial fibrillation, but she denies any chest pain, and her EKG shows atrial fibrillation with a right bundle branch block, but no evidence of significant ischemia. There is some evidence that she may have had an old inferior myocardial infarction, but this maybe due to the left anterior fascicular block. I did not have any indication in the past that she has had a myocardial infarction or significant coronary artery disease according to my records. She has had a pacemaker placed in the past and her ejection fraction has been stable throughout the evaluations in the past. She had an echocardiogram in November of this past year, which showed ejection fraction of 60% to 65% with significant left atrial dilatation and right atrial dilatation as well as some mild aortic valve sclerosis and mild mitral, aortic, and pulmonary valve regurgitation. She did have evidence of pulmonary hypertension with elevated right ventricular systolic pressure. PAST MEDICAL HISTORY: Significant for the atrial fibrillation. She has had a pacemaker insertion, the last interrogation shows that she still has significant battery life. She has had a history of hypertension. She has had lower extremity edema. She has had a history of a right bundle branch block in the past. She had a normal stress test in 2012, that is her last stress test that I see on record. She had abdominal surgery in the past with colon removal. She has had a hysterectomy, bilateral cataract surgery. FAMILY HISTORY: Not significant at this time. It is unremarkable. SOCIAL HISTORY: She denies any alcohol or tobacco abuse. She lives at home. ALLERGIES: NONE. MEDICATIONS: Prior to admission are rather extensive list. 1. She takes iron. She was on iron 325 mg a day. 2. Vitamin C. 3. Tirosint 137 mcg once a day. 4. Voltaren. 5. Tramadol. 6. Triamterene/hydrochlorothiazide 37.5/25 once a day. 7. Nexium. 8. Alendronate. 9. Vitamin B12. 10. Magnesium. 11. Vitamin E. 12. Biotin. 13. Vitamin D3. 14. P.r.n. Tylenol. 15. Multivitamins. 16. B6. 17. Fish oil. 18. Duloxetine. 19. 81 mg of aspirin. 20. Amlodipine 10 mg a day. 21. Clonidine 0.2 mg three times a day as needed for blood pressure over 180. 22. Losartan 100 mg everyday. 23. Sotalol 80 mg twice a day. 24. Eliquis 5 mg twice a day. 25. Tymlos 3120 mcg/1.56 mL as directed with pen injection. REVIEW OF SYSTEMS: She mainly complains of weight loss, inability to eat, nausea, and shortness of breath. She denied any chest pain. She has had no lower extremity edema. She says she has not had a bowel movement, but I guess she is not eating, so there are no bowel movements. PHYSICAL EXAMINATION: GENERAL: Reveals an ill-appearing female. VITAL SIGNS: Her blood pressure is 86/60, heart rate is anywhere between 108 and 120, respiratory rate is about 25 to 30, O2 saturations were 88% to 92%. HEENT: Reveals the head to be normocephalic and atraumatic. I did not hear any significant bruits noted. CHEST: Anterior appeared to be clear. There is some decreased breath sounds in the left base as would be expected. I did not hear any rales or rhonchi. CARDIOVASCULAR: Reveals an irregular rhythm. There were no gross murmurs noted. She has a pacemaker insertion and with a well-healed surgical incision underneath the left infraclavicular area. ABDOMEN: Soft. She denied any tenderness or pain. EXTREMITIES: Show no clubbing or cyanosis. I do not elicit any significant edema. Pedal pulses are palpable. She has evidence of weight loss both in her arms and legs, she can tell that she has lost significant amount of weight. NEUROLOGIC: She appears to be intact, but does appear to be fatigued. LABORATORY DATA: She earlier had WBC of 13.4, this increased up to 22.4. Hemoglobin was 12.0, hematocrit 37.8, platelet count was 441,000. Her INR was 1.6. Chemistry shows a sodium of 143, potassium of 4.4, her BUN is 51 with a creatinine of 2.6, blood sugar was 109. Lactic acid was 2.8. Her AST was 53, ALT was 34. Troponin-I was slightly elevated at 0.48, then increased up to 0.56, and the last evaluation was 0.74. She has evidence of a UTI with 4+ bacteria. She had 400 mL drained from the left pleural space, which was bloody in nature. All the culture is still pending. She was negative for COVID. EKG as mentioned above, she has atrial fibrillation with a right bundle branch block and left anterior fascicular block. IMPRESSION: 1. Left pleural effusion, which underwent thoracentesis. We will still await the results of this. It certainly could be malignant effusion and it is bloody in nature and given her weight loss and overall ill appearance and a history of continued weight loss, this may be more than just a pneumonia or parapneumonic effusion. 2. Atrial fibrillation with rapid ventricular response. At this time, she is on IV amiodarone. We will add digoxin to see if we can control the heart rate. 3. History of pacemaker insertion. The pacemaker function appears to be normal. She is not pacing at this time due to her tachycardia. 4. Right bundle branch block. This is not a new finding for her. 5. Abnormal cardiac enzymes, which most likely is due to demand ischemia, associated with her atrial fibrillation and rapid ventricular response. 6. Hypertension. At this time, she is hypotensive, most likely due to volume depletion. She appears to be dehydrated, again associated with her nausea and vomiting and inability to eat. 7. Weight loss, which is concerning for possible underlying malignancy. We will be more than happy to continue to follow the patient with you. She most likely will not tolerate any type of IV diltiazem at this time, but we will certainly try with the IV amiodarone and IV digoxin to control the rate. We can obtain an echocardiogram also to determine whether or not she has a pericardial effusion, but her last echocardiogram was on November 21, 2019, which showed a normal ejection fraction without any evidence of a pericardial effusion with some moderate to severe left atrial dilatation, most likely indicative of diastolic dysfunction. She also had mild aortic valve sclerosis with mild mitral, aortic, and tricuspid valve regurgitation. She did have evidence of mild pulmonary hypertension. We will continue to follow the patient with you. Job ID: [id number]
[2020-02-28] MEDS: Meropenem 0.5 GM in Sodium Chloride 0.9% 100 ML IVPB SCH (21:03)
--- NOTE | 2020-02-28 22:03 | CON ---
DATE OF CONSULTATION: 02/28/2020 CHIEF COMPLAINT: Trouble swallowing. HISTORY OF PRESENT ILLNESS: Ms. Locke is an 84-year-old woman, who has had dysphagia for the last few weeks. Anything that she eats, seems to stick in her esophagus and she throws it back up. This also occurs with liquids. She has had a 30-pound weight loss over a short period associated with this. She has had no abdominal pain or diarrhea or constipation. No blood in the stool. Her last upper endoscopy was by Dr. Ruiz in October 2018, which revealed chronic atrophic gastritis and the esophagus appeared unremarkable. She did not have problems swallowing prior to this. In the ER, she has been found to have a new pleural effusion and she underwent a tap for that, which shows a significant elevation of the white blood cells in her pleural fluid. She is on broad-spectrum antibiotics. She has also had AFib with RVR and has been given amiodarone for that. GI was consulted due to the dysphagia and weight loss. PAST MEDICAL HISTORY: Hypothyroidism, hypertension, atrial fibrillation, osteoporosis, gastroesophageal reflux disease, gastritis. PAST SURGICAL HISTORY: Colon resection for volvulus, hysterectomy, cataract surgery. FAMILY HISTORY: Negative for GI malignancy. SOCIAL HISTORY: No alcohol, tobacco, or drugs. ALLERGIES: NO KNOWN DRUG ALLERGIES. MEDICATIONS: Current inpatient medications include: 1. Amiodarone. 2. Doxycycline. 3. Meropenem. 4. Vancomycin. She was on Eliquis prior to admission. REVIEW OF SYSTEMS: Negative x10 systems reviewed except as stated in the history of present illness. She was having shortness of breath, which improved but not resolved after thoracentesis. LABORATORY DATA: White blood cell count 22.4, hemoglobin 12.0, platelets 441. INR 1.6. Creatinine 2.61. IMPRESSION: 1. Esophageal dysphagia with 30-pound weight loss. She had negative esophagogastroduodenoscopy in October 2018. Once her pulmonary and cardiac status are stabilized, then she should have an upper endoscopy to rule out a stricture or malignant process in the esophagus. She did have prior gastritis with biopsies indefinite for dysplasia, but most recent biopsies were negative for dysplasia. If she has any mediastinal malignancy or process, she could have a secondary achalasia. 2. Pleural effusion. Her white blood cell count is high in the fluid. She is on broad-spectrum antibiotics. Given her dysphagia, then a CT of the chest along the way might be helpful to assess the mediastinal structures. This will be deferred to Pulmonology. 3. Atrial fibrillation with rapid ventricular response. She has been started on amiodarone. 4. Acute renal failure, which is likely prerenal from her minimal oral intake. 5. Weight loss, undergoing evaluation for infectious versus malignant process. RECOMMENDATIONS: 1. She is on broad-spectrum antibiotics and being followed by Pulmonology and Cardiology and Nephrology and Internal Medicine. 2. Consider CT of the chest. 3. I will plan for EGD pending completion of cardiac and pulmonology evaluation and recommendations. Job ID: [id number]
[2020-02-29] MEDS: Albumin 25% 25 GM/100 ML BOT IVPB SCH ×4 (00:01→21:00)
[2020-02-29] MEDS: Amiodarone 450 MG in Dextrose 5% in Water 250 ML IVPB SCH ×2 (04:10→17:57)
[2020-02-29] MEDS ORDERED: Meropenem 500 MG in Sodium Chloride 0.9% 100 ML IVPB SCH (05:00)
[2020-02-29 05:04] LABS: ALT (SGPT) 41 U/L (8-55); AST (SGOT) 51 U/L (5-34); Albumin 2.8 g/dL (3.4-4.8); Alkaline Phosphatase 73 U/L (40-110); Anion Gap 20 mmol/L (10-20); BUN (Urea Nitrogen) 65 mg/dL (9.8-20.1); Calc. Creatinine Clearance 0 mL/min (70-130); Calcium 7.9 mg/dL (7.8-10.44); Carbon Dioxide 19 mmol/L (23-31); Chloride 108 mmol/L (98-107); Globulin 2.4 g/dL (2.4-3.5); Glucose 117 mg/dL (83-110); Lipase 9 U/L (8-78); Phosphorus 4.3 mg/dL (2.3-4.7); Potassium 4.8 mmol/L (3.5-5.1); Protein, Total 5.2 g/dL (5.8-8.1); Sodium 142 mmol/L (136-145)
[2020-02-29 05:23] LABS: Band 43 % (5-11); Hemoglobin 10.3 g/dL (12.0-16.0); Hypochromia SLIGHT = 6-15 cells (100X) (0-5/hpf); Lymphocytes 4 % (21-51); MDiff Complete? YES; Mean Corpuscular HGB CONC 32.1 g/dL (32.0-36.0); Mean Corpuscular Hemoglobin 31.1 pg (27.0-31.0); Mean Corpuscular Volume 96.9 fL (78.0-98.0); Monocytes 12 % (0-10); Neutrophil 41 % (42-75); Platelet Count 369 thou/uL (130-400); Platelet Morphology Comment Appears Adequate; RBC Distribution Width 13.5 % (11.5-14.5); Red Blood Cell (RBC) Count 3.32 mill/uL (4.20-5.40); White Blood Cell (WBC) Count 18.9 thou/uL (4.8-10.8)
[2020-02-29 05:33] VITALS: BMI 29.4
[2020-02-29] MEDS: Meropenem 0.5 GM in Sodium Chloride 0.9% 100 ML IVPB SCH (06:10)
--- NOTE | 2020-02-29 08:44 | CT ---
Exam: Chest CT without contrast HISTORY: Weight loss. Pleural effusion. COMPARISON: None. FINDINGS: Limited evaluation by the lack of IV contrast. No obvious mediastinal mass, lymphadenopathy or hemato ma. Heart size is within normal limits. Small amount of pericardial fluid. Esophagus is fluid-filled and dilated. There is a moderate hiatal hernia. Subdiaphragmatic structures do not demonstrate any acute abnormality. Small right pleural effusion. Scattered opacities in the right upper lobe, middle lobe and right lowe r lobe likely represent subsegmental atelectasis and scarring. There is a large focus of air attenuation in the anterior left upper lobe which may represent a conta ined pneumothorax versus cavitation. There is consolidation of the left lung. There is extensive fluid occupying the left hemithorax with heterogeneous attenuation. The possibility of an infected le ft pleural effusion is suspected. Cardiothoracic consultation for possible large volume tap is recommended. There is asymmetric edema involving the left chest wall. No lytic or blastic lesions in the osseous structures. There are severe compression fractures at L1 a nd L2. There is vacuum disc phenomenon at T12-L1. Air attenuation involves the L1 vertebral body. Trachea appears to be patent. The right mainstem bronchus appears to be patent. There appears to be a bnormal attenuation in the left lower lobe bronchus. IMPRESSION: 1. Findings worrisome for a complex, likely infected right-sided pleural effusion. There are multiple foci of air attenuation. There is also an air-fluid level in the anterior left chest wall. Findings may be secondary to contained bullous that is perforated versus a contained/loculated pneumo thorax. Consider cardiovascular surgical consultation. 2. Small right-sided pleural effusion. 3. Hiatal hernia with fluid and distention of the esophagus. 4. Abnormal attenuation of the left lower lobe bronchus. Consider pulmonary consultation. Transcribed Date/Time: 02/29/2020 9:15 AM
--- NOTE | 2020-02-29 09:12 | PDOC.HOSPP ---
- Subjective Encounter Date: 02/28/20 Encounter Time: 14:00 Subjective: Patient seen and examined for severe sepsis/septic shock with acute kidney injury/lactic acidosis and atrial fibrillation with rapid ventricular response. Underwent thoracentesis earlier. On low-dose pressors. Denies any chest pain. Feels generally weak and fatigued - Objective Vital Signs & Weight: Vital Signs (12 hours) Temp Pulse Resp BP Pulse Ox 02/29/20 07:26 86 20 90 L 02/29/20 04:00 97.6 F 88 24 H 111/66 94 L 02/29/20 02:33 91 20 98 02/29/20 02:00 97.9 F 90 24 H 108/51 L 98 02/28/20 22:31 92 18 96 Weight Admit Weight 188 lb 0.864 oz Weight 188 lb 0.869 oz I&O: 02/28/20 02/29/20 03/01/20 06:59 06:59 06:59 Intake Total 500 Output Total 10 Balance 490 Result Diagrams: 02/29/20 04:13 02/29/20 04:13 Additional Labs: Abnormal Lab Results - Last 48 hrs 02/27/20 20:32: Troponin I 0.048 H 02/27/20 21:48: Chloride 110 H, Carbon Dioxide 19 L, BUN 45 H, Creatinine 1.93 H 02/27/20 21:48: WBC 13.4 H, RBC 3.88 L, Hgb 11.9 L, MCHC 31.9 L, Plt Count 468 H, MPV 7.2 L, Band Neuts % (Manual) 35 H, Lymphocytes % (Manual) 11 L, M yelocytes % 1 H 02/27/20 23:44: Troponin I 0.056 H 02/28/20 03:26: Creatinine 2.14 H 02/28/20 04:22: Lactic Acid 2.6 H 02/28/20 06:34: Lactic Acid 2.9 H 02/28/20 06:40: Urine Clarity Extra Turbid A, Urine Protein 100 A, Urine Ketones Trace A, Urine Bilirubin Moderate A, Ur Leukocyte Esterase Trace H, Urine RBC 4- 6 A, Urine WBC 7-10 A, Ur Squamous Epith Cells 4-6 A, Urine Bacteria 4+ A 02/28/20 09:24: Troponin I 0.074 H 02/28/20 09:24: Chloride 108 H, Carbon Dioxide 22 L, BUN 51 H, Creatinine 2.61 H, AST 53 H, C-Reactive Protein 29.50 H, Serum Total Protein 5.7 L, Albumin 2.9 L, Albumin/Globulin Ratio 1.0 L 02/28/20 09:24: WBC 22.4 H, RBC 3.85 L, MCV 98.3 H, MCH 31.3 H, MCHC 31.8 L, Plt Count 441 H, Neutrophils % (Manual) 14 L, Band Neuts % (Manual) 56 H, Lymphocytes % (Manual) 17 L, Myelocytes % 1 H, WBC Morphology MARKED H, Plt Morphology Comment Appears Increased H 02/28/20 09:24: PT 19.3 H 02/28/20 09:24: Lactic Acid 2.8 H 02/28/20 11:39: Troponin I 0.075 H 02/28/20 14:23: Fluid Clarity Cloudy/Turbid H 02/28/20 15:37: B-Natriuretic Peptide 393.1 H Microbiology - Entire Visit 02/28/20 06:40 Urine clean catch Urine Culture - Preliminary 02/28/20 14:23 Pleural fluid Body Fluid Culture - Preliminary EKG Reviewed by me: Yes (Atrial fibrillation with rapid ventricular response) Hospitalist ROS - Review of Systems Constitutional: reports: weakness, malaise Gastrointestinal: denies: nausea, vomiting, abdominal pain, diarrhea, constipation, melena, hematochezia, other Genitourinary: denies: dysuria, frequency, incontinence, hematuria, retention, other - Medication Medications: Active Medications Generic Name Dose Route Start Last Admin Trade Name Isak PRN Reason Stop Dose Admin Albumin Human 25 gm 02/28/20 22:00 02/29/20 07:51 Albumin 25% 25 Gm/100 Ml Bot IVPB 02/29/20 22:01 25 gm Q8HR TWILA Administration Albuterol/Ipratropium 3 ml 02/27/20 22:30 02/29/20 07:26 Ipratropium/Albuterol Sulfate 3 Ml Neb NEB 3 ml [id number] TWILA Administration Doxycycline Hyclate 100 mg/ 100 mls @ 100 mls/hr 02/28/20 06:00 02/29/20 07:04 Sodium Chloride IVPB 100 mls 0600,1800 TWILA Administration Amiodarone HCl 450 mg/ 259 mls @ 0 mls/hr 02/28/20 02:30 02/29/20 04:10 Dextrose/Water IVPB 259 mls INF TWILA Administration Protocol Per Protocol Norepinephrine Bitartrate 250 mls @ 0 mls/hr 02/28/20 03:15 02/28/20 03:31 Levophed IVPB 250 mls INF TWILA Administration Protocol Titrate Sodium Chloride 1,000 mls @ 75 mls/hr 02/28/20 05:35 02/28/20 22:50 Normal Saline 0.9% IV 1,000 mls .[id number] TWILA Administration Ondansetron HCl 4 mg 02/27/20 21:27 02/28/20 02:12 Ondansetron Pf 4 Mg/2 Ml Vial IVP 4 mg Q6H PRN Administration Nausea/Vomiting - Exam General Appearance: awake alert, ill appearing Eye: PERRL, anicteric sclera ENT: normocephalic atraumatic Neck: supple, no JVD Heart: no gallops, no rubs, normal peripheral pulses, irregular, diminshed peripheral pulses Respiratory: no wheezes, rales, rhonchi Respiratory - other findings: Diminished air entry on the left Gastrointestinal: soft, non-distended, normal bowel sounds, no guarding, no rigidity Extremities: no cyanosis, no clubbing Skin: normal turgor, no lesions Neurological: cranial nerve grossly intact, no new deficit Musculoskeletal: generalized weakness Psychiatric: normal affect, A&O x 3 Hosp A/P - Plan DVT proph w/SCDs Patient is a 84-year-old female with atrial fibrillation on anticoagulation [facility] with shortness of breath. Her work-up was consistent with left pleural effusion along with atrial fibrillation with rapid ventricular response. She was started on Cardizem drip and was transferred to this facility after initiation of antibiotics. After transfer to this facility she remained in the emergency room for more than 24 hours due to lack of bed. She was transitioned amiodarone drip and was started on pressors due to persistent hypotension. Digoxin was also given. Cardizem was discontinued due to persistent hypotension. Impression: Severe sepsis/septic shock due to pneumonia with left pleural effusion ? 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 Will continue amiodarone. Will will change antibiotic to vancomycin and meropenem to broaden the coverage. Monitor vancomycin level. Continue IV fluids. Consultants input appreciated
[2020-02-29] MEDS: Saccharomyces boulardii 250 MG CAP PO SCH (09:23)
[2020-02-29] MEDS: Sodium Chloride 0.9% 1,000 ML IV SCH (09:29)
[2020-02-29] MEDS: Ondansetron PF 4 MG/2 ML Vial IVP PRN (09:50)
[2020-02-29] MEDS: Sodium Chloride 0.9% 10 ML ONE ×2 (09:55→10:47)
[2020-02-29] MEDS: Meropenem 500 MG in Sodium Chloride 0.9% 100 ML IVPB SCH ×2 (10:01→21:00)
[2020-02-29] MEDS ORDERED: Ondansetron PF 4 MG/2 ML Vial ONE (10:16)
[2020-02-29] MEDS ORDERED: PHENYLEPHRINE-NS 100 MCG/ML 10 ML SYRINGE ONE (10:16)
[2020-02-29] MEDS ORDERED: Rocuronium Bromide 10 MG/ML (10ML VIAL) ONE (10:16)
[2020-02-29] MEDS ORDERED: ePHEDrine 50 MG/ML VIAL ONE (10:16)
[2020-02-29] MEDS ORDERED: Calcium Chloride 1 GM/10 ML Abboject SYRINGE ONE (10:16)
[2020-02-29] MEDS: Dextrose 5 % And 0.9 % NaCl 1,000 ML IV SCH ×2 (10:50→20:48)
--- NOTE | 2020-02-29 11:00 | PDOC.EVN ---
Event Note - Event Note Event Note: Blood culture positive from [facility]
--- NOTE | 2020-02-29 13:09 | CON ---
DATE OF CONSULTATION: HISTORY OF PRESENT ILLNESS: This is an unfortunate 84-year-old female. Both she and her are very poor historians. Evidently, she was seen by a home health nurse yesterday who recommended that she be seen in the emergency room. According to the patient and , she has been unable to eat or keep anything down, but it is nearly impossible to get a timeframe for this. He says she was doing fine a week ago and she says she has been losing weight for the past year. She denies any productive cough, any fever at home, or any recent illnesses. She did have a femur fracture from April of last year, which was repaired and then she spent until July in a rehab facility, and since being home, she uses a walker to get around. I am not able to get any real answer as to how often she gets around or how well she gets around. She was admitted to the hospital with AFib with RVR, positive blood cultures, and a large left pleural effusion that was bloody, for which she underwent 400 mL thoracentesis yesterday by Dr. aWde. She was on Levophed yesterday, but this has subsequently been stopped. She has been placed on an amiodarone drip for her AFib with RVR. She was on Eliquis prior to admission for AFib. She has a remote history of multiple left-sided rib fractures, for which she underwent a thoracentesis about 8 years ago with reported good resolution of the hemothorax. PAST SURGICAL HISTORY: Otherwise, her past surgical history includes: 1. Eye surgery. 2. Hysterectomy. 3. Colon resection. PHYSICAL EXAMINATION: GENERAL: Today, she is an ill-appearing lady, but is alert and conversant. She is leaning to the left side of the bed and is unable to straighten herself up and sit upright in the bed. She is unable to move her right hand or most of her right arm, although can move a little bit at the level of the shoulder. Her left hand and arm function appears to be normal. She has no facial drooping. Speech is normal. She can move the toes in both feet. NECK: No adenopathy. LUNGS: She actually has good breath sounds bilaterally anteriorly. CARDIAC: Consistent with AFib with no murmurs. ABDOMEN: Nontender. EXTREMITIES: Her legs are without edema. DIAGNOSTIC STUDIES: I have reviewed her CT scan and it shows rather extensive consolidation of the left lung as well as what looks like probably further loculated effusion of the upper half of her chest cavity. There may be a filling defect in her left mainstem bronchus, but this could be mucus or otherwise. There are multiple small air pockets throughout, which may be consistent with a necrotic left lower lobe. ASSESSMENT: It appears as the patient probably has an empyema, may have some necrotic lung as well. Unfortunately, she appears rather emaciated, perhaps has had a stroke and has really never functionally recovered from her right hip fracture. It is very difficult for me to determine how functional she is at home because both she and her are not able to describe their situation at home. The states that her right arm is not a problem at all at home, but when questioned specifically, he notes that when he tried to get her in the car recently he had to lift up her right arm because she could not do it herself. At this time, I think hospice may be a consideration. Surgical intervention would certainly require thoracotomy and possible lobectomy if indeed the lower lobe is necrotic and I do not think she would have a meaningful recovery with major surgery. Job ID: [id number]
[2020-02-29] MEDS ORDERED: Midazolam HCl 2 mg/2 ml Vial ONE (13:18)
[2020-02-29] MEDS ORDERED: Fentanyl 100 MCG/2 ML VIAL ONE ×2 (13:18→15:36)
--- NOTE | 2020-02-29 13:36 | PRG ---
DATE OF SERVICE: 02/29/2020 The patient was seen earlier today for empyema. I visited with daughter by phone and then revisited with the patient and her and given the severity of her apparent empyema, I think thoracoscopy or thoracotomy is probably justified, although her recovery would still be difficult and ultimately she probably will end up in a correction if she survives all of this. The other option which was hospice is probably not going to be the best choice at this time. I have had a long discussion with Dariel, the daughter on phone, and I have also visited with the patient and her on 2 occasions today and all are agreeable to proceed with attempt to improve her situation. Job ID: [id number]
[2020-02-29] MEDS ORDERED: Bupivacaine PF 0.5% 30 ML VIAL ONE (13:40)
[2020-02-29] MEDS ORDERED: EPINEPHrine 1 MG/ML AMP ONE (13:40)
[2020-02-29] MEDS ORDERED: Ketamine 50 MG/ML (10ML VIAL) ONE (14:07)
[2020-02-29] MEDS ORDERED: Heparin 5,000 UNITS/ML VIAL ONE (14:13)
[2020-02-29] MEDS ORDERED: Sodium Chloride 0.9% 20 ML ONE (14:39)
[2020-02-29] MEDS ORDERED: DOPamine 400 MG/D5W 250 ML 250 ML ONE (15:12)
[2020-02-29] MEDS ORDERED: Sodium Bicarb 50 MEQ/50 ML Abboject 8.4% SYRINGE ONE (15:18)
[2020-02-29] MEDS ORDERED: Vancomycin 1 GM in Premix Bag 1 BAG IVPB SCH (16:00)
[2020-02-29] MEDS ORDERED: Ondansetron PF 4 MG/2 ML Vial IVP PRN (17:29)
[2020-02-29] MEDS ORDERED: Ventilator Sedation Protocol 1 EACH FS SCH (17:29)
[2020-02-29] MEDS ORDERED: Norepinephrine 8 MG/0.9% NS 250 ML IVPB PRN (17:29)
[2020-02-29] MEDS ORDERED: Sodium Chloride 0.9% 1,000 ML IV SCH (17:29)
[2020-02-29] MEDS: Digoxin 0.5 MG/2 ML AMP SLOW IVP SCH ×2 (17:35→20:47)
[2020-02-29 17:39] LABS: Actual Bicarbonate (HCO3a) 19.3 mEq/L (22-28); Base Excess (BEa) -5.6 mEq/L (-2.0 to +3.0); CO2 Tension 35.9 mmHg (35.0-45.0); Calcium, Ionized (arterial) 1.09 mmol/L (1.12-1.30); Carboxyhemoglobin (COHb) 0.3 gm% (0.0-3.0); O2 Tension (PaO2), arterial 94.8 mmHg (> 60.0); Potassium - ABG Lab 4.41 mmol/L (3.70-5.30); pH, Arterial 7.35 (7.35-7.45)
[2020-02-29 17:40] LABS: ALV-art Gradient 216.825 mmHg (0-20); Puncture Site Arterial Line
[2020-02-29] MEDS ORDERED: Morphine 2 MG/ML VIAL SLOW IVP PRN (17:45)
[2020-02-29] MEDS ORDERED: Fentanyl CADD 100 ML IV SCH (17:45)
[2020-02-29] MEDS ORDERED: Propofol BOLUS 1,000 MG/100 ML VIAL IV PRN (17:45)
[2020-02-29] MEDS ORDERED: DISCONTINUE PREVIOUS NARCOTIC PAIN MEDICATIONS AND BENZODIAZEPINES FS SCH (17:45)
[2020-02-29] MEDS ORDERED: Lorazepam 2 MG/ML VIAL SLOW IVP PRN (17:45)
[2020-02-29] MEDS ORDERED: Fentanyl BOLUS 250 ML IVPB PRN (17:45)
--- NOTE | 2020-02-29 17:46 | RAD ---
Chest one view HISTORY: Chest surgery. COMPARISON: 02/27/2020. FINDINGS: Cardiac silhouette is magnified by projection. Pulmonary vasculature are unremarkable. Mediastinum is midline. Tip of an endotracheal catheter overlies the thoracic inlet. Tip of a right s ubclavian central venous catheter overlies the right atrium. [address] are in place the 1 over the left upper chest at the apex. The lower chest tube overlies the left base, with the proximal sidehole at the expected location of the chest wall. No residual pneumothorax. New areas of parenchymal opacity over the right lung have the appearance of atelectasis. Dually left subclavian cardiac electronic device is in place. IMPRESSION : Interval operative changes, with lines and tubes as detailed above. The proximal sidehole of the lowe r left chest tube is at the level of the chest wall. New areas of atelectasis within the right lung.
--- NOTE | 2020-02-29 17:47 | OP ---
DATE OF PROCEDURE: 02/29/2020 PROCEDURE PERFORMED: Esophagogastroduodenoscopy. PREOPERATIVE DIAGNOSES: Esophageal dysphagia, weight loss. DESCRIPTION OF PROCEDURE: Procedure was performed under general anesthesia immediately following the thoracoscopy by Dr. Cash. The esophagus was filled with food and debris and old blood just below the upper esophageal sphincter. Scope was advanced down to the lower esophagus, where a large perforation was encountered in the 30 to 35 cm range. This opened into a large necrotic cavity with liquid and debris. The scope was repositioned through the lower esophageal sphincter into the stomach. There was a 3 cm hiatal hernia present. The gastric mucosa was normal overall. Retroflexed views in the stomach revealed the hiatal hernia, but otherwise were unremarkable. The pylorus and first and second portions of the duodenum were normal. IMPRESSION: Esophageal perforation in the distal esophagus in the 30 to 35 cm range. This enters into a large necrotic appearing cavity, which has apparently been present for some time. She will be unable to swallow. RECOMMENDATIONS: We will see how she recovers from surgery today. She is unlikely a candidate for any type of aggressive esophageal resection. She will be unable to swallow and she did not have an NG tube placed. We will discuss further with family and Dr. Cash. Job ID: [id number]
[2020-02-29] MEDS ORDERED: Fentanyl CADD 100 ML ONE (20:02)
[2020-02-29] MEDS: Propofol 1,000 MG/100 ML VIAL IV PRN (20:12)
[2020-02-29] MEDS ORDERED: Dextrose 50% Abboject 50 ML SYRINGE ONE (20:22)
[2020-02-29 20:58] LABS: Glucose 125 mg/dL (83-110)
[2020-03-01] MEDS: Amiodarone 450 MG in Dextrose 5% in Water 250 ML IVPB SCH (01:24)
[2020-03-01] MEDS: Dextrose 5 % And 0.9 % NaCl 1,000 ML IV SCH ×2 (03:42→13:11)
[2020-03-01 04:34] LABS: Anion Gap 16 mmol/L (10-20); BUN (Urea Nitrogen) 71 mg/dL (9.8-20.1); Calc. Creatinine Clearance 16 mL/min (70-130); Calcium 7.6 mg/dL (7.8-10.44); Carbon Dioxide 18 mmol/L (23-31); Chloride 112 mmol/L (98-107); Glucose 195 mg/dL (83-110); Potassium 4.1 mmol/L (3.5-5.1); Sodium 142 mmol/L (136-145)
--- NOTE | 2020-03-01 05:38 | PRG ---
DATE OF SERVICE: 02/29/2020 SUBJECTIVE: Patient was seen and examined at bedside and overnight events noted. Patient denies any shortness of breath or chest pain or palpitation. No history of nausea or vomiting or diarrhea or fever or chills or cramps. OBJECTIVE: GENERAL: This is an elderly female, in moderate distress. VITAL SIGNS: Temperature 98.3. Heart Rate 91. Respiratory rate 18. Blood pressure 106/58. HEENT: Atraumatic, normocephalic. Oral mucosa is moist. NECK: Supple. CARDIOVASCULAR: S1, S2 heard. Rate and rhythm regular. RESPIRATORY: Clear to auscultation. GASTROINTESTINAL: Abdomen is soft. MUSCULOSKELETAL: No tenderness. No edema. DERMATOLOGIC: No skin rash. NEUROLOGIC: Alert and awake and oriented x3. No focal neurologic deficits. Moving all the extremities. PSYCHIATRIC: Mood and affect normal. LABORATORY DATA: Potassium is 4.8, BUN is 65, creatinine is 3.4. ASSESSMENT AND PLAN: 1. 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 Continue supportive care. Follow up with other specialists. 2. Cardiorenal syndrome. 3. Pleural effusion with possible empyema. 4. Lactic acidosis. 5. Anemia. 6. Hypertension. Continue hydration. Continue supportive care. Follow up with other specialists. Prognosis guarded. No acute indication for dialysis. We will follow. Job ID: [id number]
[2020-03-01 05:44] LABS: Hemoglobin 9.3 g/dL (12.0-16.0); Lymphocytes 6 % (21-51); MDiff Complete? YES; Mean Corpuscular HGB CONC 32.6 g/dL (32.0-36.0); Mean Corpuscular Hemoglobin 30.8 pg (27.0-31.0); Mean Corpuscular Volume 94.7 fL (78.0-98.0); Mean Platelet Volume 8.3 fL (7.4-10.4); Metamyelocyte 2 % (0-0); Monocytes 2 % (0-10); Neutrophil 90 % (42-75); Platelet Count 272 thou/uL (130-400); Platelet Morphology Comment Appears Adequate; RBC Distribution Width 13.6 % (11.5-14.5); RBC Morphology Normal; Red Blood Cell (RBC) Count 3.03 mill/uL (4.20-5.40); White Blood Cell (WBC) Count 13.5 thou/uL (4.8-10.8)
[2020-03-01] MEDS: Propofol 1,000 MG/100 ML VIAL IV PRN (05:58)
--- NOTE | 2020-03-01 08:30 | RAD ---
Portable frontal chest radiograph: 03/01/2020 COMPARISON: 02/29/2020 HISTORY: Evaluate chest following thoracotomy FINDINGS: There is a left chest tube curling in the left upper lobe region. There is a chest tube ove rlying the left lung base with its side-port lateral to the ribs. There is a stable right vascular catheter, endotracheal tube, and transvenous pacing device. No discrete pneumothorax is seen. There i s hazy density in the right lung base with partial obscuration of the right hemidiaphragm. There is pleural and parenchymal opacity in the left base and there is pleural thickening in the lateral aspec t of the left upper lobe region. This study is limited by motion artifact and appears grossly unchanged. IMPRESSION: No significant interval change.
[2020-03-01] MEDS: Saccharomyces boulardii 250 MG CAP PO SCH (09:20)
[2020-03-01] MEDS: Meropenem 500 MG in Sodium Chloride 0.9% 100 ML IVPB SCH (09:21)
--- NOTE | 2020-03-01 09:36 | PDOC.HOSPP ---
- Subjective Encounter Date: 02/29/20 Encounter Time: 09:00 Subjective: Patient seen and examined for sepsis/septic shock. Off pressors. Feels generally weak and fatigued. Shortness of breath unchanged. Mild dry cough. - Objective Vital Signs & Weight: Vital Signs (12 hours) Temp Pulse Resp Pulse Ox 03/01/20 07:43 87 03/01/20 07:41 90 16 100 03/01/20 06:00 16 03/01/20 04:00 17 03/01/20 02:40 88 03/01/20 02:00 18 03/01/20 00:17 97.3 F L 03/01/20 00:00 16 02/29/20 23:06 82 16 98 02/29/20 22:06 100 02/29/20 22:00 16 Weight Admit Weight 188 lb 0.864 oz Weight 3.104 oz Most Recent Monitor Data Heart Rate from ECG 107 NIBP 110/61 NIBP BP-Mean 77 Respiration from ECG 16 SpO2 100 I&O: 02/29/20 03/01/20 03/02/20 06:59 06:59 06:59 Intake Total 500 2170.9 Output Total 10 416 140 Balance 490 1754.9 -140 Result Diagrams: 03/01/20 03:30 03/01/20 03:30 Additional Labs: Accuchecks 03/01/20 03/01/20 02/29/20 05:50 00:23 18:21 POC Glucose 165 H 161 H 63 L Abnormal Lab Results - Last 48 hrs 02/28/20 09:24: Troponin I 0.074 H 02/28/20 09:24: Chloride 108 H, Carbon Dioxide 22 L, BUN 51 H, Creatinine 2.61 H, AST 53 H, C-Reactive Protein 29.50 H, Serum Total Protein 5.7 L, Albumin 2.9 L, Albumin/Globulin Ratio 1.0 L 02/28/20 09:24: WBC 22.4 H, RBC 3.85 L, MCV 98.3 H, MCH 31.3 H, MCHC 31.8 L, Plt Count 441 H, Neutrophils % (Manual) 14 L, Band Neuts % (Manual) 56 H, Lymphocyt es % (Manual) 17 L, Myelocytes % 1 H, WBC Morphology MARKED H, Plt Morphology Comment Appears Increased H 02/28/20 09:24: PT 19.3 H 02/28/20 09:24: Lactic Acid 2.8 H 02/28/20 11:39: Troponin I 0.075 H 02/28/20 14:23: Fluid Clarity Cloudy/Turbid H 02/28/20 15:37: B-Natriuretic Peptide 393.1 H 02/29/20 04:13: Chloride 108 H, Carbon Dioxide 19 L, BUN 65 H, Creatinine 3.41 H, AST 51 H, Serum Total Protein 5.2 L, Albumin 2.8 L 02/29/20 04:13: WBC 18.9 H, RBC 3.32 L, Hgb 10.3 L, Hct 32.2 L, MCH 31.1 H, Neutrophils % (Manual) 41 L, Band Neuts % (Manual) 43 H, Lymphocytes % (Manual) 4 L, Monocytes % (Manual) 12 H 02/29/20 04:13: Vitamin B12 Greater than 2000 H 0 Microbiology - Entire Visit 02/28/20 14:23 Pleural fluid Body Fluid Culture - Preliminary 02/28/20 06:40 Urine clean catch Urine Culture - Preliminary Microbiology 02/27/20 18:30 Venous blood - Left Hand Blood Culture - Preliminary Gram Positive Efe 02/27/20 17:50 Venous blood - Left Arm Blood Culture - Preliminary Gram Positive Efe Radiology Reviewed by me: Yes (Chest CTreviewed) EKG Reviewed by me: Yes (No new arrhythmias on telemetry) Hospitalist ROS - Review of Systems Gastrointestinal: denies: nausea, vomiting, abdominal pain, diarrhea, constipation, melena, hematochezia, other Genitourinary: denies: dysuria, frequency, incontinence, hematuria, retention, other - Medication Medications: Active Medications Generic Name Dose Route Start Last Admin Trade Name Freq PRN Reason Stop Dose Admin Albuterol/Ipratropium 3 ml 02/27/20 22:30 03/01/20 07:41 Ipratropium/Albuterol Sulfate 3 Ml Neb NEB 3 ml [id number] TWILA Administration Digoxin 0.25 mg 02/29/20 14:00 02/29/20 20:47 Digoxin 0.5 Mg/2 Ml Amp SLOW IVP 0.25 mg 1400,2000 TWILA Administration Amiodarone HCl 450 mg/ 259 mls @ 0 mls/hr 02/28/20 02:30 03/01/20 01:24 Dextrose/Water IVPB 259 mls INF TWILA Administration Protocol Per Protocol Meropenem 500 mg/ Sodium 100 mls @ 200 mls/hr 02/29/20 09:00 03/01/20 09:21 Chloride IVPB 100 mls 0900,2100 TWILA Administration Dextrose/Sodium Chloride 1,000 mls @ 125 mls/hr 02/29/20 09:30 03/01/20 03:42 D5 0.9% Ns IV 1,000 mls .Q8H TWILA Administration Norepinephrine Bitartrate 250 mls @ 0 mls/hr 02/29/20 17:29 02/29/20 17:59 Levophed IVPB 250 mls PRN PRN Administration To Keep SBP > 90 mmHG Protocol Titrate Lorazepam 2 mg 02/29/20 17:45 03/01/20 00:50 Lorazepam 2 Mg/Ml Vial SLOW IVP 03/30/20 17:45 2 mg Q1H PRN Administration Breakthrough agitation Ondansetron HCl 4 mg 02/27/20 21:27 02/29/20 09:50 Ondansetron Pf 4 Mg/2 Ml Vial IVP 4 mg Q6H PRN Administration Nausea/Vomiting Propofol 1,000 mg 02/29/20 17:45 03/01/20 05:58 Propofol 1,000 Mg/100 Ml Vial IV 03/30/20 17:45 1,000 mg INF PRN Administration TO ACHIEVE GOAL RASS Protocol Saccharomyces Boulardii 250 mg 02/29/20 09:00 03/01/20 09:20 Saccharomyces Boulardii 250 Mg Cap PO Not Given DAILY TWILA Sodium Chloride 10 ml 02/29/20 21:00 03/01/20 09:21 Flush - Normal Saline 10 Ml Syringe IVF 10 ml Q12HR TWILA Administration - Exam General Appearance: awake alert, ill appearing Eye: PERRL ENT: normocephalic atraumatic Neck: supple, no JVD Heart: RRR, no gallops, no rubs, normal peripheral pulses Respiratory: normal chest expansion, normal percussion, rales (She had di minished air entry), rhonchi Respiratory - other findings: Diminished air entry on the left Gastrointestinal: soft, non-distended, normal bowel sounds, no guarding, no rigidity Extremities: no cyanosis Neurological: no new deficit Musculoskeletal: generalized weakness Psychiatric: normal affect, A&O x 3 Hosp A/P - Plan DVT proph w/SCDs Patient is a 84-year-old female with atrial fibrillation on anticoagulation [facility] with shortness of breath. Her work-up was consistent with left pleural effusion along with atrial fibrillation with rapid ventricular response. She was started on Cardizem drip and was transferred to this facility after initiation of antibiotics. After transfer to this facility she remained in the emergency room for more than 24 hours due to lack of bed. She was transitioned amiodarone drip and was started on pressors due to persistent hypotension. Digoxin was also given. Cardizem was discontinued due to persistent hypotension. Impression: Severe sepsis/septic shock due to pneumonia with left-sided empyema with gram-p ositive efe bacteremia 2 of 2 On pressors Atrial fibrillation with rapid ventricular response On amiodarone drip with digoxin Cardizem drip DC'd due to hypotension Esophageal dysphagia and 30 pound weight loss ANDRE on CKD stage IIprobably hemodynamically mediated Lactic acidosis Moderate protein calorie malnutrition Chronic anticoagulation History of hypertension Hypothyroidism GERD Plan: CV consultation due to significant empyema. We will continue IV fluids for worsening renal function. Continue vancomycin and meropenem. Continue amiodarone drip with digoxin per cardiology. N.p.o. for possible thoracoscopy today.
[2020-03-01 11:18] VITALS: TEMP 99
[2020-03-01 11:26] VITALS: BP 119/68
[2020-03-01] MEDS ORDERED: Morphine 10 MG/ML VIAL SLOW IVP PRN (11:43)
--- NOTE | 2020-03-01 12:24 | PRG ---
DATE OF SERVICE: SUBJECTIVE: The patient is now postoperative day #1 for thoracoscopic decortication with the additional findings of midesophageal necrosis and perforation, exact etiology unknown. The patient has been stable overnight, requiring [id number] doses of Levophed in conjunction with propofol for sedation. She remains in atrial fibrillation, on the amiodarone drip with a rate of about 100. Her urine output remains low, but is clear yellow. Her chest tube output totals about 350 mL. OBJECTIVE: GENERAL: On examination, she is resting comfortably on the ventilator, not responding to verbal stimuli. LUNGS: Clear to auscultation anteriorly. ABDOMEN: Soft and does have bowel sounds. NECK: Without crepitus. Chest x-ray shows improvement in the left chest opacification, but with probable increasing pleural fluid on the right. LABORATORY VALUES: Her creatinine is relatively stable at about 3.6 and her hemoglobin is 9.3. Her white count is 13,500 with significant left shift, although her bandemia has resolved. Her platelet count has diminished from the 450 range to about 270. ASSESSMENT AND PLAN: I have had discussion with her and daughter. At this time, definitive treatment for her esophageal necrosis, whether this be from malignancy or perforation from bone or some other etiology. The patient would require spit fistula stapling of the GE junction and placement of a jejunostomy tube and then subsequent return to the operating room under better situation for some sort of esophagectomy and esophagogastrostomy. Overall, I think the patient's general condition would not lead to successful outcome in this regard. She had never really bounced back from her femur fracture and was getting around on a walker in the house minimally. I think that she would be looking at probably 2-3 months to get through the proposed interventions and then most likely would be looking a fci placement. I think a better option in this case would be consideration for inpatient hospice, trying to get her off the ventilator for a short time to visit with family. They are in the process of making a decision in this regard. Job ID: [id number]
--- NOTE | 2020-03-01 12:36 | PRG ---
DATE OF SERVICE: 03/01/2020 SUBJECTIVE: Ms. Locke remains sedated on the ventilator. OBJECTIVE: VITAL SIGNS: Temperature 99.0, blood pressure 119/68, and pulse 91. ABDOMEN: Soft, nondistended. IMPRESSION: Esophageal perforation. 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 This further complicated more acutely with empyema and at this point, she is a poor surgical candidate for esophagectomy and aggressive treatment of this lesion. The family is opting for palliative care. RECOMMENDATIONS: 1. Anticipated that she will be extubated once her sedation wears off. Plan is to avoid aggressive surgical intervention and comfort care measures. 2. I will sign off for now. Please call if GI can be of assistance. Job ID: [id number]
--- NOTE | 2020-03-01 16:16 | PDOC.DS.DS ---
Provider - Provider Date of Admission: 02/27/20 20:23 Date of Discharge: 03/01/20 Admitting Provider: Kevin Alva MD Consultations: Cardiology, Gastroentrology, Other (Cardiovascular) Primary Care Physician: Tiffany Graff MD Course - Hospital Course Hospital Course: Patient is a 84-year-old female with atrial fibrillation on anticoagulation presented to the [facility] emergency room on 02/26 with shortness of breath. Her work-up was consistent with left pleural effusion along with atrial fibrillation with rapid ventricular response. She was started on Cardizem drip and was transferred to this facility after initiation of antibiotics. After transfer to this facility she remained in the emergency room as a CCU hold for more than 24 hours due to lack of bed. She was transitioned amiodarone drip and was started on pressors due to persistent hypotension. Digoxin was also given. Cardizem was discontinued due to persistent hypotension. For pleural effusion patient underwent thoracentesis that was consistent with exudate. The fluid was also positive for gram variable jin. Patient underwent CT scan of the chest next morning that showed findings consistent with infected right-sided pleural effusion with multiple foci of air attenuation. There was also an air-fluid level in the anterior left chest wall. There was distention of the esophagus with hiatal hernia. The patient was evaluated by cardiovascular surgery. She underwent thoracoscopy/thoracotomy as well as EGD. EGD showed esophageal perforation in the distal esophagus with large necrotic appearing cavity. Due to terminal prognosis patient was extubated and was placed on comfort care. Patient will be transition to inpatient hospice per family's request. Final diagnosis: Severe sepsis/septic shock due to pneumonia with left-sided empyema with gram- positive jin bacteremia 2 of 2 requiring pressors Atrial fibrillation with rapid ventricular response requiring amiodarone drip/digoxin. Cardizem drip DC'd due to hypotension Esophageal dysphagia and 30 pound weight loss probably due to esophageal massbiopsy pending ANDRE on CKD stage IIprobably hemodynamically mediated Lactic acidosis Moderate protein calorie malnutrition Chronic anticoagulation History of hypertension Hypothyroidism GERD Resuscitation Status: 03/01/20 11:43 Resuscitation Status Routine Resuscitation Status: DNAR: NO Resuscitation Discussed with: - Labs Lab Results: 03/01/20 03:30 03/01/20 03:30 Abnormal Lab Results - Last 48 hrs 02/28/20 14:23: Fluid Clarity Cloudy/Turbid H 02/28/20 15:37: B-Natriuretic Peptide 393.1 H 02/29/20 04:13: Chloride 108 H, Carbon Dioxide 19 L, BUN 65 H, Creatinine 3.41 H, AST 51 H, Serum Total Protein 5.2 L, Albumin 2.8 L 02/29/20 04:13: WBC 18.9 H, RBC 3.32 L, Hgb 10.3 L, Hct 32.2 L, MCH 31.1 H, Neutrophils % (Manual) 41 L, Band Neuts % (Manual) 43 H, Lymphocytes % (Manual) 4 L, Monocytes % (Manual) 12 H 02/29/20 04:13: Vitamin B12 Greater than 2000 H 02/29/20 13:18: Crossmatch See Detail 02/29/20 17:30: Bicarbonate Actual 19.3 L, ABG pO2 94.8 H, ABG O2 Content 15.0 L, ABG Base Excess -5.6 L, ABG Hematocrit 32.0 L, ABG Hemoglobin 11.0 L, ABG Deoxyhemoglobin 3.2 H, A-a O2 Gradient 216.825 H, Ionized Calcium 1.09 L, Chloride 114 H 03/01/20 03:30: Chloride 112 H, Carbon Dioxide 18 L, BUN 71 H, Creatinine 3.63 H, Calcium 7.6 L 03/01/20 03:30: WBC 13.5 H, RBC 3.03 L, Hgb 9.3 L, Hct 28.7 L, Neutrophils % (Manual) 90 H, Lymphocytes % (Manual) 6 L Microbiology - Entire Visit 02/28/20 06:40 Urine clean catch Urine Culture - Final Lactobacillus species 02/28/20 14:23 Pleural fluid Direct Acid Fast Bacilli Smear - Pending 02/28/20 14:23 Pleural fluid Acid Fast Bacilli Smear - Pending 02/28/20 14:23 Pleural fluid Acid Fast Bacilli Culture - Preliminary Specimen has been received and culture in progress. No Growth to date. 02/28/20 14:23 Pleural fluid Body Fluid Culture - Preliminary - Physical Exam Vitals: Vital Signs (12 hours) Temp Pulse Resp BP Pulse Ox 03/01/20 12:00 16 03/01/20 11:25 91 119/68 03/01/20 11:00 99.0 F 03/01/20 10:00 16 03/01/20 08:00 100 03/01/20 07:43 87 03/01/20 07:41 90 16 100 03/01/20 06:00 16 Weight Admit Weight 188 lb 0.864 oz Weight 3.104 oz Most Recent Monitor Data Heart Rate from ECG 92 NIBP 104/65 NIBP BP-Mean 78 Respiration from ECG 16 SpO2 100 Physical Exam: The patient was seen and examined on the day of discharge. Plan - Discharge Medications Home Medications: Medication Instructions Recorded Confirmed Type Amlodipine Besylate [amLODIPine 10 mg PO DAILY 05/29/14 02/29/20 History Besylate] Levothyroxine Sodium 137 mcg PO DAILY 05/29/14 02/29/20 History cloNIDine [Catapres] 0.2 mg PO TID 05/29/14 02/29/20 History Apixaban [Eliquis] 5 mg PO BID 05/03/17 02/29/20 History Triamterene/Hydrochlorothiazid 1 tablet PO DAILY 05/03/17 02/29/20 History [Triamterene-Hctz 37.5-25 mg Tb] Alendronate Sodium 70 mg PO Q7DAYS 05/07/19 02/29/20 History Aspirin [Ecotrin Low Strength] 81 mg PO DAILY 05/07/19 02/29/20 History Cyclobenzaprine [Flexeril] 5 mg PO TID PRN tab 05/07/19 02/29/20 Rx DULoxetine HCl [Cymbalta] 20 mg PO DAILY 05/07/19 02/29/20 History Esomeprazole Magnesium [NexIUM] 40 mg PO DAILY 05/07/19 02/29/20 History Sotalol HCl [Sotalol] 80 mg PO BID 05/07/19 02/29/20 History Ascorbic Acid [Vitamin C] 500 mg PO BID 02/29/20 02/29/20 History Ferrous Sulfate [Feosol] 325 mg PO BID 02/29/20 02/29/20 History Losartan [Cozaar] 100 mg PO DAILY 02/29/20 02/29/20 History traMADol HCl [Ultram] 50 mg PO BID 02/29/20 02/29/20 History Allergies: No Known Allergies Allergy (Verified 02/29/20 05:39) - Follow up Plan Referrals: Tiffany Graff MD [Primary Care Provider] - Disposition: HOSPICE MEDICAL FACILITY Quality - Care Measures CORE MEASURES:: N/A
--- NOTE | 2020-03-01 17:27 | PRG ---
DATE OF SERVICE: 03/01/2020 SUBJECTIVE: Ms. Locke was evaluated yesterday for surgery and again today after her surgery. She was sedated when I saw her. I sat down and met with the and the daughter. We had explained to them that in Dr. Cash's opinion, my opinion, and safety council director's opinion, she does not have anything that is surgically correctable. They were very appreciative of the care that has been given so far. I recommended extubation for comfort care. They agreed. She had equal breath sounds. Her chest x-ray has significantly improved. The remainder of her exam is unchanged. She still has chest tube in. 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 There is nothing that can be done surgically for this, especially with her age and cachectic state. Family agreed to comfort care measures. The orders were written. Job ID: [id number]
--- NOTE | 2020-03-01 18:53 | PRG ---
DATE OF SERVICE: 03/01/2020 SUBJECTIVE: The patient was seen and examined at bedside, intubated. OBJECTIVE: VITAL SIGNS: Temperature 99.0, pulse 92, respiratory rate 18, blood pressure 104/65. HEENT: Intubated. CV: S1 and S2, heard. RESPIRATORY: Clear. MUSCULOSKELETAL: 1+ edema. NEUROLOGIC: Intubated. LABORATORY DATA: Potassium 4.1, BUN is 71, creatinine is 3.6. ASSESSMENT AND PLAN: 1. Acute kidney injury on chronic kidney disease. 2. Cardiorenal syndrome. 3. Pleural effusion. 4. Lactic acidosis. 5. Anemia. 6. History of hypertension. Prognosis is guarded. We will follow. Job ID: [id number]
--- NOTE | 2020-03-02 05:42 | OP ---
DATE OF PROCEDURE: 02/29/2020 PREOPERATIVE DIAGNOSIS: Empyema, left chest. POSTOPERATIVE DIAGNOSIS: Empyema, left chest. PROCEDURE PERFORMED: Left thoracoscopy with total lung decortication. ANESTHESIA: General. ESTIMATED BLOOD LOSS: Minimal. TRANSFUSION: 1 unit of packed red cells. FINDINGS: The patient had shaggy exudate that was adherent to the parietal and visceral pleura and was systematically removed at least to about 90%. DESCRIPTION OF PROCEDURE: After adequate anesthesia had been obtained, a right subclavian triple-lumen CVP was placed, following which the patient was placed in the right lateral decubitus position. After prepping and draping, the port site was created after inserting a finger and then a sucker, removing some blood-tinged fluid. After inserting the scope, there was large amount of shaggy exudate and a second site was chosen for port site for grasping and removing the debris. This was carried out alternating a port site and grasping site and then 2 L of irrigation used to wash the area clean. Following this, a #32 right angle and 32 straight chest tube were placed with a right angle tube down in the most inferior recess of the costophrenic angle and the second tube up at the apex. The wounds were then closed in layers and at that point, Dr. Zohaib Parra entered to perform upper GI endoscopy. Job ID: [id number]
[2020-03-03] MEDS ORDERED: Digoxin 0.5 MG/2 ML AMP SLOW IVP SCH (09:00)
[2020-03-04 10:16] LABS: Amiodarone 0.8 ug/mL (1.0-2.5)
[2020-03-11 13:49] LABS: Analyzer IN Cardio OR; Base Excess (BEa) -7.4 mEq/L (-2.0 to +3.0); Calcium, Ionized (arterial) 1.16 mmol/L (1.12-1.30); Carboxyhemoglobin (COHb) 0.6 gm% (0.0-3.0); Hemoglobin (Hb) 9.5 g/dL (12.0-16.0); O2 Tension (PaO2), arterial 122.5 mmHg (> 60.0); Potassium - ABG Lab 4.31 mmol/L (3.70-5.30); pH, Arterial 7.27 (7.35-7.45)
[2020-03-11 14:14] LABS: Puncture Site Arterial Line
== END 2020-03-01 15:10 | disposition hospice, inpatient (51) | DRG 853 ==
LOC: ERS 19:20 → ERHOLD 20:23 → 2NO 02-29 01:28 → CCU 02-29 14:22 → IMCU/EMU 02-29 17:20
PROVIDERS: ADMIT Student in an Organized Health Care Education/Training Program; ATTEND Internal Medicine
PROC: 0W9B3ZZ Drainage of Left Pleural Cavity, Percutaneous Approach (ICD-10-PCS; 2020-02-27)
PROC: 0BNL4ZZ Release Left Lung, Percutaneous Endoscopic Approach (ICD-10-PCS; principal; 2020-02-29)
PROC: 5A1935Z Respiratory Ventilation, Less than 24 Consecutive Hours (ICD-10-PCS; 2020-02-29)
PROC: 30233N1 Transfusion of Nonautologous Red Blood Cells into Peripheral Vein, Percutaneous Approach (ICD-10-PCS; 2020-02-29)
PROC: 0DJ08ZZ Inspection of Upper Intestinal Tract, Via Natural or Artificial Opening Endoscopic (ICD-10-PCS; 2020-02-29)
PROC: 3E033XZ Introduction of Vasopressor into Peripheral Vein, Percutaneous Approach (ICD-10-PCS; 2020-02-29)
PROC: 0BH17EZ Insertion of Endotracheal Airway into Trachea, Via Natural or Artificial Opening (ICD-10-PCS; 2020-02-29)
DX: A41.89 Other specified sepsis (principal); R65.21 Severe sepsis with septic shock; J86.9 Pyothorax without fistula; Z20.822 Contact with and (suspected) exposure to COVID-19; Z66 Do not resuscitate; Z51.5 Encounter for palliative care; J18.9 Pneumonia, unspecified organism; K22.3 Perforation of esophagus; I21.4 Non-ST elevation (NSTEMI) myocardial infarction; N17.0 Acute kidney failure with tubular necrosis; E87.2 Acidosis; E44.0 Moderate protein-calorie malnutrition; J91.8 Pleural effusion in other conditions classified elsewhere; I48.91 Unspecified atrial fibrillation; R13.19 Other dysphagia; N18.2 Chronic kidney disease, stage 2 (mild); E03.9 Hypothyroidism, unspecified; K21.9 Gastro-esophageal reflux disease without esophagitis; K44.9 Diaphragmatic hernia without obstruction or gangrene; E86.9 Volume depletion, unspecified; I13.10 Hypertensive heart and chronic kidney disease without heart failure, with stage 1 through stage 4 chronic kidney disease, or unspecified chronic kidney disease; I45.10 Unspecified right bundle-branch block; D63.1 Anemia in chronic kidney disease; E88.09 Other disorders of plasma-protein metabolism, not elsewhere classified; Z78.1 Physical restraint status; Z95.0 Presence of cardiac pacemaker; Z90.710 Acquired absence of both cervix and uterus; Z90.49 Acquired absence of other specified parts of digestive tract; Z68.29 Body mass index [BMI] 29.0-29.9, adult; Z98.42 Cataract extraction status, left eye; Z98.41 Cataract extraction status, right eye; Z79.899 Other long term (current) drug therapy; Z79.01 Long term (current) use of anticoagulants; Z79.890 Hormone replacement therapy; Z79.82 Long term (current) use of aspirin
CPT/HCPCS: 36415; 36416; 36430; 51702; 71045; 71250; 80048; 80053; 80151; 81001; 82150; 82533; 82565; 82607; 82746; 82805; 82945; 83605; 83615; 83690; 83735; 83880; 83986; 84100; 84157; 84300; 84478; 84484; 85025; 85060; 85610; 85730; 86140; 86850; 86900; 86901; 86922; 87070; 87086; 87116; 87205; 87206; 87635; 88112; 88305; 89051; 93005; 94002; 94003; 94640; 94760; 96365; 96375; J0171; J0282; J0692; J1160; J1265; J1642; J1644; J2060; J2185; J2250; J2270; J2405; J2704; J3010; J3370; J3490; J7070; J7620; P9016; P9047; S0020; U0003; U0005

== ENCOUNTER 2020-03-01 15:19 | Inpatient (IN) | payer OTHER ==
[2020-03-01] MEDS ORDERED: diphenhydrAMINE 50 MG/ML VIAL IVP PRN (15:30)
[2020-03-01] MEDS ORDERED: Lorazepam 2 MG/ML VIAL SLOW IVP SCH (15:30)
[2020-03-01] MEDS ORDERED: Scopolamine 1.5 mg/72 hour Patch TOP SCH (15:30)
[2020-03-01] MEDS ORDERED: Ondansetron PF 4 MG/2 ML Vial IVP PRN (15:30)
[2020-03-01] MEDS ORDERED: Morphine 10 MG/ML VIAL SLOW IVP PRN (15:32)
[2020-03-01] MEDS ORDERED: Lorazepam 2 MG/ML VIAL SLOW IVP PRN (15:33)
[2020-03-01 15:42] VITALS: BMI 29.4
[2020-03-01] MEDS: Morphine 10 MG/ML VIAL SLOW IVP SCH ×3 (17:29→21:19)
[2020-03-01] MEDS: Lorazepam 2 MG/ML VIAL SLOW IVP SCH ×4 (17:29→23:01)
[2020-03-01] MEDS ORDERED: Morphine 4 MG/ML VIAL SLOW IVP PRN (22:26)
[2020-03-01] MEDS: Morphine 4 MG/ML VIAL SLOW IVP SCH (23:02)
[2020-03-02] MEDS: Lorazepam 2 MG/ML VIAL SLOW IVP SCH ×5 (00:36→08:31)
[2020-03-02] MEDS: Morphine 4 MG/ML VIAL SLOW IVP SCH ×5 (00:39→08:26)
[2020-03-02 08:13] VITALS: BP 50/36; TEMP 99.7
--- NOTE | 2020-03-03 14:10 | DIS ---
DATE OF ADMISSION: 03/01/2020 DATE OF DISCHARGE: 03/02/2020 DATE OF : 03/02/2020 at 10:04 a.m. BRIEF SUMMARY, HISTORY, PHYSICAL AND HOSPITAL COURSE: The patient was an unfortunate 84-year-old white female, who was admitted to [facility] in 02/2020. The patient had history of atrial fibrillation, on anticoagulation and was found to have shortness of breath. On the day of admission, she was found to have a left pleural effusion as well as atrial fibrillation with a rapid ventricular rate. The patient was started on Cardizem drip as well as IV antibiotics and placed in the emergency room. The patient underwent a thoracentesis that was consistent with exudate and fluid was found to have Gram-variable rods. The patient also had air-fluid levels in the anterior chest wall. There was distention of the esophagus and hiatal hernia. There was concern that the patient had an esophageal perforation in the distal esophagus cavity. Due to the patient's terminal prognosis, she was consulted with family to determine that care was futile and she was terminally extubated and placed on comfort measures with hospice care and this was per family wishes. The patient was admitted to hospice care and given IV morphine for air hunger and pain. She was given Ativan for terminal restlessness and scopolamine patches for secretion control. She was placed on O2 for comfort measures as well and was made fairly comfortable. The patient had an evaluation on the morning of 03/02/2020. The patient was found to have no respirations, no pulse, no response to stimuli, was pronounced at 10:04 a.m. CAUSE OF : Asystole secondary to cardiac arrhythmia due to sepsis. Cause of sepsis was due to esophageal perforation leading to empyema and respiratory failure. The patient's body was released to home per family wishes and family was counseled appropriately. Job ID: [id number]
== END 2020-03-02 12:20 | disposition expired | DRG 951 ==
LOC: IMCU/EMU 15:19 → SJJU 17:14
PROVIDERS: ADMIT Family Medicine; ATTEND Family Medicine
DX: Z51.5 Encounter for palliative care (principal); Z66 Do not resuscitate; A41.9 Sepsis, unspecified organism; J69.0 Pneumonitis due to inhalation of food and vomit; I21.A1 Myocardial infarction type 2; R65.20 Severe sepsis without septic shock; N17.9 Acute kidney failure, unspecified; J90 Pleural effusion, not elsewhere classified; I48.91 Unspecified atrial fibrillation; E03.9 Hypothyroidism, unspecified; Z79.01 Long term (current) use of anticoagulants; Z90.49 Acquired absence of other specified parts of digestive tract; Z90.710 Acquired absence of both cervix and uterus; Z95.0 Presence of cardiac pacemaker; Z79.899 Other long term (current) drug therapy
CPT/HCPCS: J2060; J2270